=== PATIENT | male | born 2000 | race Two or more races ===

== ENCOUNTER 2019-10-04 12:51 | Inpatient (IN) | payer OTHER ==
[~2019-10-04] VITALS: Ht 182.9 cm; Wt 61.5 kg
[2019-10-04] MEDS ORDERED: IPRATROPIUM 0.5MG/ALBUTEROL 2.5MG INH SOL UD 3ML (DUONEB)(J7620) NEB SCH (14:00)
[2019-10-04 15:16] VITALS: BP 147/86
[2019-10-04] MEDS ORDERED: QUEtiapine FUMARATE 12.5 MG HALF-TAB PEG PRN (17:00)
[2019-10-04] MEDS ORDERED: oxyCODONE 5MG TAB PEG PRN ×2 (17:00→18:15)
[2019-10-04] MEDS ORDERED: oxyCODONE 5MG TAB PO ONE (17:00)
--- NOTE | 2019-10-04 17:43 | REP ---
Clinical: Dyspnea. Rule out infiltrate/pneumonia . Comparison: None . Findings: The mediastinum and cardiac silhouette are stable and within normal limits for portable technique. The lung ferguson are clear without acute consolidation, effusion, or pneumothorax. Skeletal structures are intact. Kee rods noted through the visualized lower thoracic and upper lumbar spine. Impression: No acute cardiopulmonary process appreciated. Electronically Signed by Matt Patel MD 10/04/2019 05:35 P
--- NOTE | 2019-10-04 18:50 | HPEPDOC ---
Paper Cleaner Note DATE OF ADMISSION: 10/04/19 DATE OF SERVICE: 10/04/19 TIME OF ADMISSION: Please refer to physician's admission order. SOURCE OF ADMISSION INFORMATION: [facility] records and patient CHIEF COMPLAINT: TBI and SCI HISTORY OF PRESENT ILLNESS: 19M no pmh presented to [facility] on 09-24-19 after sustaining a fall from a tree while working found to have bilateral ankle fractures, non-displaced nasal bone fracture/oblique left upper posterior molar fracture, and a left sided temporal lobe contusion with scattered subarachnoid hemorrhages. He also was found to have a T12 burst fracture with noted bilateral lower extremity paralysis. MRI of his spine confirmed spinal cord compression. He was intubate d, admitted to the ICU, started on seizure prophylaxis with Keppra, and evaluated by neurosurgery who performed a laminectomy and fusion performed 09/25/19. He underwent bilateral ankle ORIF on 09-27-19, was started on DVT prophylaxis and made NWB for 6-8 weeks. Plastic and ENT did not deem his facial fractures to operable. He was unable to pass a swallow eval and underwent PEG placement on 09-30-19, however was cleared for dysphagia diet prior to discharge. He was deemed to be medically appropriate for discharge to ARU. On initial presentation patient was delirious reporting visual hallucinations with ongoing productive cough. He reports having pain everywhere. He is able to follow some commands. REVIEW OF SYSTEMS: The following is a completed review of systems and has been reviewed. Review of systems otherwise unremarkable. PAIN: Patient self reports pain everywhere EYES: No recent vision changes EARS, NOSE, & THROAT: + throat pain, +dysphagia CARDIOVASCULAR: Denies chest pain or palpitations PULMONARY: Denies shortness of breath, +cough GASTROINTESTINAL: Denies constipation/diarrhea GENITOURINARY: denies dysuria MUSCULOSKELETAL: bilat LE weakness with bilat ankle fractures NEUROLOGICAL:+paraplegia HEMATOLOGICAL: denies easy bruising SKIN: scattered tattoos, bilat medial/lateral ankle incisions, thoracic incision PSYCHIATRIC: +delirious with visual hallucinations All other review of systems found to be negative. PAST MEDICAL HISTORY: none PAST SURGICAL HISTORY: as per HPI ALLERGIES: Please see below. MEDICATIONS: Please see below. SOCIAL HISTORY:+smoker per [facility] report DIET: NPO PHYSICAL EXAMINATION: VITAL SIGNS: Please see below. GENERAL: Pleasant and cooperative. No acute distress. HEENT: PERRL. Extraocular movements intact. Clear conjunctiva, CARDIOVASCULAR: Regular rate and rhythm. No murmurs, rubs, or gallops LUNGS: Clear to auscultation bilaterally. No wheezes. No rhonchi, +transmitted upper airway sounds, constant throat clearing/cough ABDOMEN: Soft, nontender, nondistended. Positive bowel sounds. Normal active bowel sounds, +PEG NEUROLOGICAL: Alert and oriented to self, year, not place, actively having visual hallucinations, but able to follow most commands -Cranial nerves II through XII grossly intact. Sensation grossly intact to light touch and pinprick in bilat LE and sacral region (exam limited due to delirium, will perform PENELOPE SCI exam at later date) (1+ patella reflex bilat, negative Babinski bilat) EXTREMITIES: 5\5 strength bilateral upper extremities. right hip flexor/knee extensor and hip abduction 2/5 (ankle DF/EHL limited due to surgery, able to wiggle toes) left hip flexor/knee extensor and hip abduction 2+/5 (ankle DF/EHL limited due to surgery, able to wiggle toes) SKIN: bilat ankle incisions c/d/i, thoracic incision c/d/i, blanchable erythema bilat heels, no sacral erythema LABORATORY DATA: Please see below. IMAGING:Imaging documentation personally reviewed by record Left ankle 09/24/19 fractures of the left distal tibia and fibuladistal tibial fracture is intra- articular Right ankle XR 09/24/19 comminuted intra-articular fracture of the distal tibia. Transverse facture of the right distal tibia FUNCTIONAL STATUS: Premorbid: Independent with all activities of daily life as well as mobility On Admission: Maximum-Total assistance for bed mobility, ambulation, toileting, dressing, feeding GOALS: Mod-I from wheelchair level for mobility, functional transfers, toileting, bathing, dressing ASSESSMENT:19-year-old M with no significant PMH who presents status post fall from tree with TBI, SCI, and bilat ankle fractures PLAN: 1. Rehab- PT/OT advance mobility- strengthen/stretch/maintain ROM all 4limbs while keeping spinal precautions and NWB bilat LE- multipodus boots to be worn in bed [employer]- NPO for now given encephalopathy- c/u tube feeds, [employer] to trial feeds over the weekend and advance if cleared -cog for TBI 2. 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 Cardiac: no known hx-monitor for autonomic dysreflexia-optimize pain control, monitor for urinary/fecal retention -propranolol for agitation/storming 4. Resp: patient presenting with cough, CXR ordered and negative for infiltrate -will start duonebs, guaifenesin, and budesonide to help reduce upper airway inflammation as patient with constant throat clearing 5. GI: c/u bowel meds for neurogenic bowel with daily suppository and digital stimulation to trigger recto-colonic reflex -PPI for ppx 6. : neurogenic bladder, monitor PVRs and bladder scan q6h- see bladder scan order 7. DVT ppx: lovenox, will order admission Dopplers 8. Ortho: s/p bilat ankle ORIF, NWB f/u ortho 6-8 weeks 9. Pain: patient was on dilaudid, will trial oxycodone while here and gabapentin, tylenol TID 10. Dispo: TBD POST ADMISSION PHYSICIAN EVALUATION: Medical and functional status: Description of medical status, medical assessment: As above. Rehabilitation diagnosis and current and prior cold morbid medical conditions as above. Risk of complications and plans to mitigate them as above. Description of functional status current status is as above. Prior status as above. Status compared to preadmission: There are no clinically significant differences between the patient's current status and the information described on the preadmission screening document. Treatment plan anticipated: Treatment plan is as described above. Required disciplines including physical therapy, occupational therapy, others as noted above Intensity of services: 3 hours a day, 6 days a week. Special considerations: There are no specific special or safety considerations that would likely preclude immediate implementation of an intensive rehabilitation program or subsequently influence the plan of care. ATTESTATION: Considering all the information above, it is my best judgment that this patient requires intensive rehabilitation therapy as described above and an inpatient hospital environment due to the complexity of nursing, medical, and rehabilitation needs required by the patient. Furthermore, this patient can reasonably be expected to participate in an benefit from an inpatient rehabilitation stay with an interdisciplinary team approach to the delivery of rehabilitation care under the direction and supervision of rehabilitation physician. PROGNOSIS: good ESTIMATED LENGTH OF STAY:21-24 days. PROJECTED DISCHARGE DESTINATION: Home with family support and any durable me dical equipment required to increase functional safety and mobility. TIME SPENT COUNSELING AND COORDINATING INITIAL CARE: Greater than 70 minutes. Vital Signs Vital Sign - Last 24 Hours 10/04/19 15:16 Temp 97.5 Pulse 100 Resp 18 B/P (MAP) 147/86 (106) Pulse Ox 100 Laboratory Data Labs 24H Laboratory Tests 2 10/04/19 16:45: Allergies Coded Allergies: No Known Allergies (Unverified , 10/04/19) A-FIB/CHADSVASC A-FIB History Current/History of A-Fib/PAF?: No ARTUR MERRITT MD October 04, 2019 18:50
[2019-10-04] MEDS ORDERED: BISACODYL 10 MG SUPP PR SCH (19:00)
[2019-10-04 20:00] VITALS: BP 144/76
[2019-10-04] MEDS: BUDESONIDE 180MCG INHALER (PULMICORT FLEXHALER) INH SCH (20:00)
[2019-10-04] MEDS: IPRATROPIUM 0.5MG/ALBUTEROL 2.5MG INH SOL UD 3ML (DUONEB)(J7620) NEB SCH (20:00)
[2019-10-04] MEDS ORDERED: GABAPENTIN 100 MG CAP PEG SCH (21:00)
[2019-10-04] MEDS ORDERED: guaiFENesin SYRUP 200 MG/10 ML UDC PEG SCH (21:00)
[2019-10-04] MEDS: CHLORHEXIDINE GLUCONATE 0.12 % 15ML UDC (PERIDEX ORAL RINSE) XX SCH (21:13)
[2019-10-04] MEDS: QUEtiapine FUMARATE 12.5 MG HALF-TAB PEG SCH (21:14)
[2019-10-04] MEDS: PROPRANOLOL 10 MG TAB PEG SCH ×2 (21:14→23:41)
[2019-10-04] MEDS: oxyCODONE 5MG TAB PEG SCH (21:15)
[2019-10-04] MEDS: FLUTICASONE PROP 0.05% NASAL SPRAY 16 GM (FLONASE) NARES SCH (21:16)
[2019-10-04] MEDS: GABAPENTIN 100 MG CAP PEG SCH (21:16)
[2019-10-04] MEDS: ACETAMINOPHEN 325 MG/10.15 ML UDC TF SCH (21:16)
[2019-10-04] MEDS: SODIUM CHLORIDE NASAL 0.65% SPRAY BTL (OCEAN) SCH (21:16)
[2019-10-04] MEDS: DOCUSATE SOD LIQ 100MG/10ML UDC GT SCH (21:16)
[2019-10-05] MEDS: IPRATROPIUM 0.5MG/ALBUTEROL 2.5MG INH SOL UD 3ML (DUONEB)(J7620) NEB SCH ×5 (02:10→19:55)
[2019-10-05 06:00] VITALS: BP 135/75
[2019-10-05] MEDS: PROPRANOLOL 10 MG TAB PEG SCH ×4 (06:10→21:39)
[2019-10-05 06:51] LABS: BASO # 0.1 10^3/uL (0.0-0.2); BASO % 0.6 % (0.0-1.0); EOS # 0.4 10^3/uL (0.0-0.5); EOS % 2.4 % (0.0-3.0); HEMATOCRIT 34.4 % (42.0-52.0); HEMOGLOBIN 11.7 g/dl (13.5-17.5); LYMPH # 1.7 10^3/uL (1.5-5.0); LYMPH % 10.2 % (24.0-44.0); MEAN CORPUSCULAR HEMOGLOBIN 32.2 pg (27.0-33.0); MEAN CORPUSCULAR VOLUME 94.8 fl (80.0-96.0); MONO # 1.4 10^3/uL (0.0-0.8); MONO % 8.3 % (0.0-5.0); NEUTROPHILS # 12.2 10^3/uL (1.5-8.5); NEUTROPHILS % 73.7 % (36.0-66.0); PLATELET COUNT, AUTOMATED 405 10^3/uL (150-450); RED BLOOD COUNT 3.63 10^6/uL (4.30-6.10); WHITE BLOOD COUNT 16.5 10^3/uL (4.0-10.0)
[2019-10-05 07:13] LABS: ALBUMIN 3.1 GM/DL (3.2-5.2); ALT/SGPT 65 U/L (12-78); BILIRUBIN,TOTAL 1.4 MG/DL (0.2-1.0); BLOOD UREA NITROGEN 20 MG/DL (7-18); CALCIUM LEVEL 8.8 MG/DL (8.5-10.1); CARBON DIOXIDE LEVEL 27 MEQ/L (21-32); CHLORIDE LEVEL 99 MEQ/L (98-107); CREATININE FOR GFR 0.67 MG/DL (0.70-1.30); GLOMERULAR FILTRATION RATE > 60.0 (>60); GLUCOSE, FASTING 108 MG/DL (70-100); POTASSIUM SERUM 4.7 MEQ/L (3.5-5.1); SODIUM LEVEL 135 MEQ/L (136-145); TOTAL PROTEIN 7.1 GM/DL (6.4-8.2)
[2019-10-05] MEDS: BUDESONIDE 180MCG INHALER (PULMICORT FLEXHALER) INH SCH ×2 (07:41→19:55)
[2019-10-05] MEDS: DOCUSATE SOD LIQ 100MG/10ML UDC GT SCH ×3 (08:29→21:37)
[2019-10-05] MEDS: oxyCODONE 5MG TAB PEG SCH ×4 (08:29→21:40)
[2019-10-05] MEDS: LANSOPRAZOLE SUSPENSION 30 MG/10 ML ORAL SYRINGE (FIRST-LANSOPRAZOLE) PEG SCH (08:30)
[2019-10-05] MEDS: ACETAMINOPHEN 325 MG/10.15 ML UDC TF SCH ×3 (08:30→21:37)
[2019-10-05] MEDS: GABAPENTIN 100 MG CAP PEG SCH ×3 (08:30→21:37)
[2019-10-05] MEDS: CHLORHEXIDINE GLUCONATE 0.12 % 15ML UDC (PERIDEX ORAL RINSE) XX SCH ×4 (08:30→21:37)
[2019-10-05] MEDS: QUEtiapine FUMARATE 12.5 MG HALF-TAB PEG SCH ×2 (08:30→21:38)
[2019-10-05] MEDS: guaiFENesin 200 MG TAB PEG SCH ×3 (08:30→21:38)
[2019-10-05] MEDS: SODIUM CHLORIDE NASAL 0.65% SPRAY BTL (OCEAN) SCH ×3 (08:31→21:40)
[2019-10-05] MEDS: ENOXAPARIN 40MG/0.4ML SYRINGE (J1650 PER 10MG) SC SCH (08:31)
[2019-10-05] MEDS: FLUTICASONE PROP 0.05% NASAL SPRAY 16 GM (FLONASE) NARES SCH ×2 (08:31→21:40)
[2019-10-05] MEDS: SENNA 8.6 MG TAB (SENOKOT) PEG SCH (12:42)
[2019-10-05] MEDS ORDERED: ALBUTEROL 90 MCG/ACT 8GM HFA INHALER INH PRN (13:15)
[2019-10-05] MEDS ORDERED: ISOVUE-370 76% 100ML VIAL As Ordered ONE (13:31)
--- NOTE | 2019-10-05 13:52 | IPNPDOC ---
Text Note Date of Service The patient was seen on 10/05/19. NOTE Subjective: Patient continues to have confusion and visual hallucinations. Mark estevez developed wet intensive cough since yesterday and shortness of breath VITAL SIGNS: Please see below. GENERAL: awake, alert, NAD HEENT: NCAT, anicteric sclera, JALEN NECK: supple, no JVD CARDIOVASCULAR EXAMINATION: NS1S2, tachycardic at rate 105 RESPIRATORY EXAMINATION: Coarse lung sounds bilaterally ABDOMINAL EXAMINATION: positive bowel sounds x 4, NT EXTREMITIES: ankles and feet immobilized in casts, pulsation preserved SKIN: warm, no rashes. NEUROLOGICAL EXAMINATION: Not oriented in place, has some visual hallucinations, but able to answer questions, follows simple commands, incomplete paraplegia Assessment and plan Patient is 19 years old male who was transferred to ARU physical rehabilitation after prolonged hospitalization due to multiple traumas after falling from a tree. Patient developed bilateral tibial trauma, left-sided temporal contusion with subarachnoid hemorrhage , facial trauma, spinal injury at T11-T12 with edema requiring intubation. Patient had laminectomy. Subsequently patient was extubated. Due to continues delirium and somnolence PEG was placed on 10/02/19. Sepsis Patient has tachycardia and dyspnea with leukocytosis Most likely patient developed pneumonia secondary to aspiration. Also patient was recently in the ICU on ventilatory support I will start combination Zosyn and levofloxacin Sputum culture, blood culture IV fluid CTA to rule out PE. Incentive spirometry Aspiration precaution Pneumonia HCAP vs ventilatory associated pneumonia vs aspiration pneumonia See above Altered mental status/metabolic encephalopathy Unclear etiology. Most likely multifactorial after traumatic brain injury superimposed with sepsis and pain medications VS,Fishbone, I+O VS, Fishbone, I+O Laboratory Tests 10/05/19 06:19 Vital Signs Date Time Temp Pulse Resp B/P (MAP) Pulse Ox O2 Delivery O2 Flow Rate FiO2 10/05/19 12:42 22 93 Room Air 10/05/19 12:41 121 119/76 10/05/19 06:00 98.5 I&O- Last 24 Hours up to 6 AM 10/05/19 06:00 Intake Total 0 ml Output Total 475 ml Balance -475 ml SUSANNA LOZOYA DO October 05, 2019 13:52
[2019-10-05 14:00] VITALS: BP 139/92
[2019-10-05] MEDS ORDERED: NS 1,000 ML IV ONE (14:00)
--- NOTE | 2019-10-05 14:15 | REP ---
Clinical: Acute chest pain. Technique: Axial contrast enhanced images from the thoracic inlet to the upper abdomen using 75 ml Isovue 370 intravenous contrast material with coronal and sagittal re-formations. Findings: Satisfactory enhancement of the pulmonary vasculature is achieved and no filling defects are identified to suggest pulmonary embolus. Thoracic aorta is normal caliber without aneurysm or dissection. Heart and pericardium are normal. Subtle acute scattered alveolar and interstitial infiltrates are identified bilaterally (left greater than right) and most compatible with an early acute multifocal pneumonia. No discrete large consolidation. No effusion. No pneumothorax. Inspissated material and elements of mucus plugging are identified involving the left lower lobe bronchi. Skeletal structures demonstrate evidence for recent compression fracture at T12 with associated Kee rods in satisfactory position. Impression: No evidence for pulmonary embolus. Acute multifocal pneumonia. Electronically Signed by Matt Patel MD 10/05/2019 02:06 P
[2019-10-05] MEDS: NS 1,000 ML IV SCH (15:07)
[2019-10-05] MEDS: PIPERACILLIN/TAZOBACTAM SOD 4.5 GM in D5W MINI-BAG PLUS 100 ML IV SCH ×2 (15:58→21:35)
[2019-10-05] MEDS: BISACODYL 10 MG SUPP PR SCH (16:09)
[2019-10-05] MEDS: LevoFLOXacin IV 750 MG in IV 1 EA IV SCH (17:03)
[2019-10-05 20:30] VITALS: BP 141/77
[2019-10-06] MEDS: PIPERACILLIN/TAZOBACTAM SOD 4.5 GM in D5W MINI-BAG PLUS 100 ML IV SCH ×4 (01:42→21:16)
[2019-10-06] MEDS: oxyCODONE 5MG TAB PEG SCH ×6 (01:43→22:10)
[2019-10-06] MEDS: NS 1,000 ML IV SCH ×2 (03:45→12:11)
[2019-10-06 05:12] VITALS: BP 155/85
[2019-10-06 07:05] LABS: BASO % 0.3 % (0.0-1.0); EOS # 0.3 10^3/uL (0.0-0.5); EOS % 2.2 % (0.0-3.0); HEMATOCRIT 29.3 % (42.0-52.0); HEMOGLOBIN 9.8 g/dl (13.5-17.5); LYMPH # 1.4 10^3/uL (1.5-5.0); LYMPH % 9.4 % (24.0-44.0); MEAN CORPUSCULAR HEMOGLOBIN 32.5 pg (27.0-33.0); MEAN CORPUSCULAR HGB CONC 33.4 g/dl (32.0-36.5); MONO # 1.2 10^3/uL (0.0-0.8); NEUTROPHILS # 11.5 10^3/uL (1.5-8.5); PLATELET COUNT, AUTOMATED 310 10^3/uL (150-450); RED BLOOD COUNT 3.02 10^6/uL (4.30-6.10); WHITE BLOOD COUNT 14.9 10^3/uL (4.0-10.0)
[2019-10-06] MEDS: BUDESONIDE 180MCG INHALER (PULMICORT FLEXHALER) INH SCH ×2 (07:12→19:41)
[2019-10-06] MEDS: IPRATROPIUM 0.5MG/ALBUTEROL 2.5MG INH SOL UD 3ML (DUONEB)(J7620) NEB SCH ×4 (07:12→19:41)
[2019-10-06 07:44] LABS: BLOOD UREA NITROGEN 17 MG/DL (7-18); CALCIUM LEVEL 7.9 MG/DL (8.5-10.1); CARBON DIOXIDE LEVEL 29 MEQ/L (21-32); CHLORIDE LEVEL 103 MEQ/L (98-107); CREATININE FOR GFR 0.67 MG/DL (0.70-1.30); GLOMERULAR FILTRATION RATE > 60.0 (>60); GLUCOSE, FASTING 119 MG/DL (70-100); MAGNESIUM LEVEL 1.8 MG/DL (1.8-2.4); POTASSIUM SERUM 4.1 MEQ/L (3.5-5.1); SODIUM LEVEL 138 MEQ/L (136-145)
[2019-10-06] MEDS: GABAPENTIN 100 MG CAP PEG SCH ×3 (08:13→22:11)
[2019-10-06] MEDS: guaiFENesin 200 MG TAB PEG SCH ×3 (08:13→22:12)
[2019-10-06] MEDS: ENOXAPARIN 40MG/0.4ML SYRINGE (J1650 PER 10MG) SC SCH (08:14)
[2019-10-06] MEDS: PROPRANOLOL 10 MG TAB PEG SCH ×3 (08:14→22:11)
[2019-10-06] MEDS: LANSOPRAZOLE SUSPENSION 30 MG/10 ML ORAL SYRINGE (FIRST-LANSOPRAZOLE) PEG SCH (08:14)
[2019-10-06] MEDS: DOCUSATE SOD LIQ 100MG/10ML UDC GT SCH ×3 (08:15→22:12)
[2019-10-06] MEDS: FLUTICASONE PROP 0.05% NASAL SPRAY 16 GM (FLONASE) NARES SCH ×2 (08:15→21:17)
[2019-10-06] MEDS: ACETAMINOPHEN 325 MG/10.15 ML UDC TF SCH ×3 (08:15→22:09)
[2019-10-06] MEDS: CHLORHEXIDINE GLUCONATE 0.12 % 15ML UDC (PERIDEX ORAL RINSE) XX SCH ×4 (08:15→22:09)
[2019-10-06] MEDS: QUEtiapine FUMARATE 12.5 MG HALF-TAB PEG SCH ×2 (08:16→22:12)
[2019-10-06] MEDS: SODIUM CHLORIDE NASAL 0.65% SPRAY BTL (OCEAN) SCH ×3 (08:16→21:17)
--- NOTE | 2019-10-06 11:57 | IPNPDOC ---
Text Note Date of Service The patient was seen on 10/06/19. NOTE Subjective: No any acute events overnight. Patient is more alert, awake in the morning. He was able to answer my questions. VITAL SIGNS: Please see below. GENERAL: awake, alert, NAD HEENT: NCAT, anicteric sclera, JALEN NECK: supple, no JVD CARDIOVASCULAR EXAMINATION: NS1S2, tachycardic at rate 105 RESPIRATORY EXAMINATION: Coarse lung sounds bilaterally ABDOMINAL EXAMINATION: positive bowel sounds x 4, NT EXTREMITIES: ankles and feet immobilized in casts, pulsation preserved SKIN: warm, no rashes. NEUROLOGICAL EXAMINATION: Not oriented in place, has some visual hallucinations, but able to answer questions, follows simple commands, incomplete paraplegia Assessment and plan Patient is 19 years old male who was transferred to ARU physical rehabilitation after prolonged hospitalization due to multiple traumas after falling from a tree. Patient developed bilateral tibial trauma, left-sided temporal contusion with subarachnoid hemorrhage , facial trauma, spinal injury at T11-T12 with edema requiring intubation. Patient had laminectomy. Subsequently patient was extubated. Due to continues delirium and somnolence PEG was placed on 10/02/19. Sepsis Patient has tachycardia and dyspnea with leukocytosis on 10/05/19 Most likely patient developed pneumonia secondary to aspiration. Also patient was recently in the ICU on ventilatory support I started combination Zosyn and levofloxacin on 10/05/19 Sputum culture positive for Klebsiella Oxytoca Continue IV fluid CTA showed multifocal pneumonia, negative for PE Incentive spirometry Aspiration precaution Pneumonia HCAP vs ventilatory associated pneumonia vs aspiration pneumonia See above Altered mental status/metabolic encephalopathy Resolved Unclear etiology. Most likely multifactorial after traumatic brain injury superimposed with sepsis and pain medications VS,Andrebone, I+O VS, Fishbone, I+O Laboratory Tests 10/06/19 06:46 Vital Signs Date Time Temp Pulse Resp B/P (MAP) Pulse Ox O2 Delivery O2 Flow Rate FiO2 10/06/19 08:43 19 10/06/19 08:14 107 155/85 10/06/19 05:12 99.1 99 Room Air I&O- Last 24 Hours up to 6 AM 10/06/19 06:00 Intake Total 4560 ml Output Total 1275 ml Balance 3285 ml SUSANNA LOZOYA DO October 06, 2019 11:57
[2019-10-06] MEDS: SENNA 8.6 MG TAB (SENOKOT) PEG SCH (12:10)
[2019-10-06 14:00] VITALS: BP 137/57
[2019-10-06] MEDS: LevoFLOXacin IV 750 MG in IV 1 EA IV SCH (16:12)
[2019-10-06] MEDS: BISACODYL 10 MG SUPP PR SCH (16:39)
[2019-10-06 21:00] VITALS: BP 136/78
[2019-10-07] MEDS: IPRATROPIUM 0.5MG/ALBUTEROL 2.5MG INH SOL UD 3ML (DUONEB)(J7620) NEB SCH ×4 (00:12→19:23)
[2019-10-07] MEDS: NS 1,000 ML IV SCH ×3 (00:20→11:13)
[2019-10-07] MEDS: PIPERACILLIN/TAZOBACTAM SOD 4.5 GM in D5W MINI-BAG PLUS 100 ML IV SCH ×2 (01:15→07:39)
[2019-10-07] MEDS: oxyCODONE 5MG TAB PEG SCH ×7 (02:00→20:36)
[2019-10-07 06:00] VITALS: BP 130/64
[2019-10-07 06:53] LABS: BASO # 0.1 10^3/uL (0.0-0.2); BASO % 0.6 % (0.0-1.0); EOS # 0.3 10^3/uL (0.0-0.5); EOS % 2.7 % (0.0-3.0); HEMATOCRIT 28.4 % (42.0-52.0); HEMOGLOBIN 9.9 g/dl (13.5-17.5); LYMPH # 1.6 10^3/uL (1.5-5.0); LYMPH % 14.3 % (24.0-44.0); MEAN CORPUSCULAR HEMOGLOBIN 33.7 pg (27.0-33.0); MEAN CORPUSCULAR HGB CONC 34.9 g/dl (32.0-36.5); MEAN CORPUSCULAR VOLUME 96.6 fl (80.0-96.0); MONO % 9.2 % (0.0-5.0); NEUTROPHILS # 7.6 10^3/uL (1.5-8.5); NEUTROPHILS % 69.3 % (36.0-66.0); PLATELET COUNT, AUTOMATED 295 10^3/uL (150-450); RED BLOOD COUNT 2.94 10^6/uL (4.30-6.10); WHITE BLOOD COUNT 10.9 10^3/uL (4.0-10.0)
[2019-10-07 07:07] LABS: BLOOD UREA NITROGEN 15 MG/DL (7-18); CALCIUM LEVEL 8.2 MG/DL (8.5-10.1); CARBON DIOXIDE LEVEL 30 MEQ/L (21-32); CHLORIDE LEVEL 97 MEQ/L (98-107); CREATININE FOR GFR 0.64 MG/DL (0.70-1.30); GLOMERULAR FILTRATION RATE > 60.0 (>60); GLUCOSE, FASTING 95 MG/DL (70-100); MAGNESIUM LEVEL 2.1 MG/DL (1.8-2.4); POTASSIUM SERUM 4.2 MEQ/L (3.5-5.1); SODIUM LEVEL 134 MEQ/L (136-145)
[2019-10-07] MEDS: BUDESONIDE 180MCG INHALER (PULMICORT FLEXHALER) INH SCH ×2 (07:30→19:23)
[2019-10-07] MEDS: DOCUSATE SOD LIQ 100MG/10ML UDC GT SCH ×4 (07:44→20:42)
[2019-10-07] MEDS: ACETAMINOPHEN 325 MG/10.15 ML UDC TF SCH ×3 (07:44→20:42)
[2019-10-07] MEDS: LANSOPRAZOLE SUSPENSION 30 MG/10 ML ORAL SYRINGE (FIRST-LANSOPRAZOLE) PEG SCH (07:45)
[2019-10-07] MEDS: guaiFENesin 200 MG TAB PEG SCH ×3 (07:46→20:36)
[2019-10-07] MEDS: PROPRANOLOL 10 MG TAB PEG SCH ×3 (07:46→20:36)
[2019-10-07] MEDS: SODIUM CHLORIDE NASAL 0.65% SPRAY BTL (OCEAN) SCH ×3 (07:47→20:41)
[2019-10-07] MEDS: FLUTICASONE PROP 0.05% NASAL SPRAY 16 GM (FLONASE) NARES SCH ×2 (07:47→20:41)
[2019-10-07] MEDS: CHLORHEXIDINE GLUCONATE 0.12 % 15ML UDC (PERIDEX ORAL RINSE) XX SCH ×4 (07:47→20:41)
[2019-10-07] MEDS: ENOXAPARIN 40MG/0.4ML SYRINGE (J1650 PER 10MG) SC SCH (07:48)
[2019-10-07] MEDS: GABAPENTIN 100 MG CAP PEG SCH ×3 (07:53→20:35)
[2019-10-07] MEDS: QUEtiapine FUMARATE 12.5 MG HALF-TAB PEG SCH ×2 (07:54→20:36)
--- NOTE | 2019-10-07 11:01 | REP ---
DEEP VENOUS ULTRASONOGRAPHY BILATERAL THIGH, RULE OUT DVT: REASON: Pain and swelling, bilateral. Preliminary report given by [facility] at the time the examination was performed. TECHNIQUE: Multiple ultrasonographic images of the deep venous structures of the bilateral thigh were obtained from the common femoral vein to the popliteal vein along with Doppler interrogation and color flow Doppler images. FINDINGS: There is no abnormal echogenic material seen within any of the visualized deep venous structures that would suggest acute thrombosis. Coaptation is unremarkable throughout. Doppler interrogation shows an expected response to respiratory variability and augmentation. The color flow images show what appears to be a normal vascular pattern throughout. IMPRESSION: There is no ultrasonographic evidence of deep venous thrombosis involving any of the visualized deep venous structures of the bilateral thigh, as described above. Electronically Signed by Michael Muse DO 10/07/2019 11:54 A
[2019-10-07] MEDS: SENNA 8.6 MG TAB (SENOKOT) PEG SCH ×2 (12:20→20:35)
[2019-10-07 14:00] VITALS: BP 128/72
[2019-10-07] MEDS: BISACODYL 10 MG SUPP PR SCH (14:45)
[2019-10-07] MEDS: LevoFLOXacin IV 750 MG in IV 1 EA IV SCH (15:54)
[2019-10-07] MEDS: REMEDY PHYTOPLEX Z-GUARD PASTE 113GM TUBE (FROM STOREROOM PRODUCT) TOP SCH ×2 (16:00→20:41)
--- NOTE | 2019-10-07 16:42 | IPNPDOC ---
PM&R Progress Note DATE OF SERVICE: October 07, 2019 [employer] Progress Note Subjective: PAtient reporting he is not having bad pain, he was able to tolerate one can of bolus today, and states he had a large bowel movement in the morning. He says his cough is much better. REVIEW OF SYSTEMS: The following is a completed review of systems and has been reviewed. Review of systems otherwise unremarkable. PAIN: Patient self reports pain everywhere EYES: No recent vision changes EARS, NOSE, & THROAT: +dysphagia CARDIOVASCULAR: Denies chest pain or palpitations PULMONARY: Denies shortness of breath, +cough (improving) GASTROINTESTINAL: Denies constipation/diarrhea GENITOURINARY: denies dysuria MUSCULOSKELETAL: bilat LE weakness with bilat ankle fractures NEUROLOGICAL:+paraplegia HEMATOLOGICAL: denies easy bruising SKIN: scattered tattoos, bilat medial/lateral ankle incisions, thoracic incision PSYCHIATRIC: +delirious with visual hallucinations (improving) All other review of systems found to be negative. PHYSICAL EXAMINATION: VITAL SIGNS: Please see below. GENERAL: Pleasant and cooperative. No acute distress. HEENT: PERRL. Extraocular movements intact. Clear conjunctiva, CARDIOVASCULAR: Regular rate and rhythm. No murmurs, rubs, or gallops LUNGS: Clear to auscultation bilaterally. No wheezes. No rhonchi, +transmitted upper airway sounds, constant throat clearing/cough ABDOMEN: Soft, nontender, nondistended. Positive bowel sounds. Normal active bowel sounds, +PEG NEUROLOGICAL: Alert and oriented x3 -Cranial nerves II through XII grossly intact. Sensation grossly intact to light touch and pinprick in bilat LE and sacral region (1+ patella reflex bilat, negative Babinski bilat) EXTREMITIES: 5\5 strength bilateral upper extremities. right hip flexor/knee extensor and hip abduction 2/5 (ankle DF/EHL limited due to surgery, able to wiggle toes) left hip flexor/knee extensor and hip abduction 2+/5 (ankle DF/EHL limited due to surgery, able to wiggle toes) SKIN: bilat ankle incisions c/d/i, thoracic incision c/d/i, blanchable erythema bilat heels, no sacral erythema ASSESSMENT:19-year-old M with no significant PMH who presents status post fall from tree with TBI, SCI, and bilat ankle fractures PLAN: 1. Rehab- PT/OT advance mobility- strengthen/stretch/maintain ROM all 4limbs w hile keeping spinal precautions and NWB bilat LE- multipodus boots to be worn in bed SH[employer]ER- NPO for now given encephalopathy- c/u tube feeds -cog for TBI 2. 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 Cardiac: no known hx-monitor for autonomic dysreflexia-optimize pain control, monitor for urinary/fecal retention -c/u propranolol for agitation/storming 4. Resp: patient started on IV Levaquin and Zosyn for sepsis in setting of VAP multifocal pneumonia, dx via CTA chest on 10-05-19, sputum growing Klebisella Oxytoca- medicine recs greatly appreciated -will start duonebs, guaifenesin, and budesonide to help reduce upper airway inflammation as patient with constant throat clearing 5. GI: c/u bowel meds for neurogenic bowel with daily suppository and digital stimulation to trigger recto-colonic reflex, patient had large BM today -PPI for ppx 6. : bryant placed over the weekend, while getting IVF in order to help prevent autonomic dysreflexia in setting of likely neurogenic bladder -will consider TOV mid-week 7. DVT ppx: lovenox, doppelrs negative for DVT 8. Ortho: s/p bilat ankle ORIF, NWB f/u ortho 6-8 weeks 9. Pain: c/u standing oxycodone, will lower from 10-->7.5mg, patient reporting his pain is well controlled -c/u gabapentin, tylenol TID 10. Dispo: TBD Allergies Coded Allergies: No Known Allergies (Unverified , 10/04/19) Vital Signs Vital Signs Date Time Temp Pulse Resp B/P (MAP) Pulse Ox O2 Delivery O2 Flow Rate FiO2 10/07/19 16:01 82 128/62 10/07/19 14:00 97.7 16 100 Room Air Laboratory Data CBC/BMP Laboratory Tests 10/07/19 06:19 Labs 24H Laboratory Tests 2 10/07/19 06:19: Immature Granulocyte % (Auto) 3.9H, Neutrophils (%) (Auto) 69.3H, Lymphocytes (%) (Auto) 14.3L, Monocytes (%) (Auto) 9.2H, Eosinophils (%) (Auto) 2.7, Basophils (%) (Auto) 0.6, Neutrophils # (Auto) 7.6, Lymphocytes # (Auto) 1.6, Monocytes # (Auto) 1.0H, Eosinophils # (Auto) 0.3, Basophils # (Auto) 0.1, Nucleated Red Blood Cells % (auto) 0.0, Anion Gap 7L, Glomerular Filtration Rate > 60.0, Calcium Level 8.2L, Magnesium Level 2.1 Microbiology Microbiology 10/06/19 Gram Stain - Final, Resulted 10/06/19 Sputum Culture, Resulted Pending 10/06/19 Blood Culture - Preliminary, Resulted No growth after 24 hours . All specim... 10/05/19 Blood Culture - Preliminary, Resulted No Growth after 48 hours. All Specime... 10/04/19 Gram Stain - Final, Complete 10/04/19 Sputum Culture - Final, Complete Klebsiella Oxytoca Current Medications Current Medications Current Medications Medications (Trade) Dose Ordered Sig/Talia Route PRN Reason Start Time Stop Time Status Last Admin Dose Admin Acetaminophen (Tylenol Suspension) 975 mg TID TF 10/04/19 21:00 10/07/19 16:01 Albuterol Sulfate (Proventil, Ventolin Hfa) 2 puff Q4H PRN INH WHEEZING 10/05/19 13:15 Albuterol/ Ipratropium (Duoneb (Ipr 0.5mg/Alb 2.5mg)) 3 ml RQID NEB 10/04/19 20:00 10/07/19 15:00 Albuterol/ Ipratropium (Duoneb (Ipr 0.5mg/Alb 2.5mg)) 3 ml RTID NEB 10/04/19 14:00 10/04/19 18:09 DC Bisacodyl (Dulcolax Suppository) 10 mg ASDIRECTED CA 10/04/19 19:00 10/05/19 14:11 DC Bisacodyl (Dulcolax Suppository) 10 mg DAILY CA 10/07/19 14:45 Bisacodyl (Dulcolax Suppository) 10 mg QPM@1700 CA 10/05/19 17:00 10/07/19 14:36 DC Budesonide (Pulmicort Flexhaler) 2 puff RBID INH 10/04/19 20:00 10/07/19 07:30 Chlorhexidine Gluconate (Peridex Oral Rinse) 15 ml QID XX 10/04/19 21:00 10/07/19 16:03 Docusate Sodium (Colace Liquid) 100 mg TID GT 10/04/19 21:00 10/07/19 14:36 DC 10/07/19 07:44 Docusate Sodium (Colace Liquid) 200 mg TID GT 10/07/19 16:00 10/07/19 16:01 Enoxaparin Sodium (Lovenox) 40 mg DAILY SC 10/05/19 09:00 10/07/19 07:48 Fluticasone Propionate (Flonase 0.05% Nasal [place]) 1 spray BID NARES 10/04/19 21:00 10/07/19 07:47 Gabapentin (Neurontin) 200 mg TID PEG 10/04/19 21:00 10/04/19 18:47 DC Gabapentin (Neurontin) 300 mg TID PEG 10/04/19 21:00 10/07/19 16:00 Guaifenesin (Robitussin Tab) 400 mg TID PEG 10/05/19 09:00 10/07/19 16:00 Guaifenesin (Robitussin) 10 ml TID PEG 10/04/19 21:00 10/05/19 02:48 DC 10/04/19 21:16 Home Med (Med Rec Complete!) ASDIRECTED XX 10/04/19 18:15 10/04/19 18:08 DC Lansoprazole (First-Lansoprazole Oral Suspension) 30 mg DAILY PEG 10/05/19 09:00 10/07/19 07:45 Levofloxacin 750 mg/IV Miscellaneous Supplies 150 ml @ 100 mls/hr Q24H IV 10/05/19 16:00 10/07/19 15:54 Oxycodone HCl (Roxicodone, Oxyir) 5 mg Q8HP PRN PEG PAIN 10/04/19 17:00 10/04/19 18:14 DC Oxycodone HCl (Roxicodone, Oxyir) 5 mg QID PEG 10/04/19 21:00 10/05/19 14:16 DC 10/05/19 12:42 Oxycodone HCl (Roxicodone, Oxyir) 7.5 mg Q8HP PRN PEG PAIN 10/04/19 18:15 10/05/19 14:15 DC Oxycodone HCl (Roxicodone, Oxyir) 10 mg Q4H PEG 10/05/19 17:00 10/07/19 12:20 Piperacillin Sod/ Tazobactam Sod 4.5 gm/Dextrose 50 ml @ 50 mls/hr Q6H IV 10/07/19 17:00 Piperacillin Sod/ Tazobactam Sod 4.5 gm/Dextrose 100 ml @ 100 mls/hr Q6H IV 10/05/19 14:00 10/07/19 14:03 DC 10/07/19 07:39 Propranolol HCl (Inderal) 10 mg Q6H PEG 10/04/19 18:00 10/05/19 14:52 DC 10/05/19 12:41 Propranolol HCl (Inderal) 20 mg TID PEG 10/05/19 16:00 10/07/19 16:01 Quetiapine Fumarate (SEROquel) 12.5 mg BID PEG 10/04/19 21:00 10/07/19 07:54 Quetiapine Fumarate (SEROquel) 12.5 mg Q8HP PRN PEG agitation 10/04/19 17:00 10/05/19 04:12 Senna (Senokot) 1 tab DAILY@1200 PEG 10/05/19 12:00 10/07/19 14:36 DC 10/07/19 12:20 Senna (Senokot) 2 tab QHS PEG 10/07/19 21:00 Sodium Chloride 1,000 ml @ 120 mls/hr Q8H20M IV 10/05/19 15:00 10/07/19 14:03 DC 10/07/19 11:13 Sodium Chloride ([place] Nasal [place]) 2 spray TID NA 10/04/19 21:00 5/18/20 07:47 ARTUR MERRITT MD October 07, 2019 16:42
[2019-10-07] MEDS ORDERED: PILL CUTTER 1 EACH XX PRN (16:45)
[2019-10-07] MEDS: PIPERACILLIN/TAZOBACTAM SOD 4.5 GM in D5W MINI-BAG PLUS 50 ML IV SCH ×2 (17:54→22:22)
[2019-10-07 18:34] VITALS: BP 136/77
[2019-10-07 19:57] VITALS: BP 131/60
[2019-10-08] MEDS: oxyCODONE 5MG TAB PEG SCH ×6 (00:58→20:58)
[2019-10-08] MEDS: PIPERACILLIN/TAZOBACTAM SOD 4.5 GM in D5W MINI-BAG PLUS 50 ML IV SCH ×4 (04:19→23:05)
[2019-10-08 06:00] VITALS: BP 132/73
[2019-10-08 07:01] LABS: BASO # 0.1 10^3/uL (0.0-0.2); BASO % 0.7 % (0.0-1.0); EOS # 0.2 10^3/uL (0.0-0.5); EOS % 2.8 % (0.0-3.0); HEMATOCRIT 31.6 % (42.0-52.0); HEMOGLOBIN 10.8 g/dl (13.5-17.5); LYMPH # 1.3 10^3/uL (1.5-5.0); LYMPH % 15.6 % (24.0-44.0); MEAN CORPUSCULAR HEMOGLOBIN 32.7 pg (27.0-33.0); MEAN CORPUSCULAR HGB CONC 34.2 g/dl (32.0-36.5); MEAN CORPUSCULAR VOLUME 95.8 fl (80.0-96.0); MONO # 0.8 10^3/uL (0.0-0.8); MONO % 9.4 % (0.0-5.0); NEUTROPHILS # 5.8 10^3/uL (1.5-8.5); NEUTROPHILS % 67.6 % (36.0-66.0); PLATELET COUNT, AUTOMATED 354 10^3/uL (150-450); WHITE BLOOD COUNT 8.5 10^3/uL (4.0-10.0)
[2019-10-08] MEDS: BUDESONIDE 180MCG INHALER (PULMICORT FLEXHALER) INH SCH ×2 (07:12→20:26)
[2019-10-08] MEDS: IPRATROPIUM 0.5MG/ALBUTEROL 2.5MG INH SOL UD 3ML (DUONEB)(J7620) NEB SCH ×4 (07:12→20:26)
[2019-10-08 07:22] LABS: BLOOD UREA NITROGEN 15 MG/DL (7-18); CALCIUM LEVEL 8.7 MG/DL (8.5-10.1); CARBON DIOXIDE LEVEL 30 MEQ/L (21-32); CHLORIDE LEVEL 96 MEQ/L (98-107); CREATININE FOR GFR 0.71 MG/DL (0.70-1.30); GLOMERULAR FILTRATION RATE > 60.0 (>60); GLUCOSE, FASTING 144 MG/DL (70-100); MAGNESIUM LEVEL 2.1 MG/DL (1.8-2.4); SODIUM LEVEL 132 MEQ/L (136-145)
[2019-10-08] MEDS: BISACODYL 10 MG SUPP PR SCH (09:00)
[2019-10-08] MEDS: REMEDY PHYTOPLEX Z-GUARD PASTE 113GM TUBE (FROM STOREROOM PRODUCT) TOP SCH ×3 (09:00→21:00)
[2019-10-08] MEDS: LANSOPRAZOLE SUSPENSION 30 MG/10 ML ORAL SYRINGE (FIRST-LANSOPRAZOLE) PEG SCH (09:44)
[2019-10-08] MEDS: ENOXAPARIN 40MG/0.4ML SYRINGE (J1650 PER 10MG) SC SCH (09:45)
[2019-10-08] MEDS: DOCUSATE SOD LIQ 100MG/10ML UDC GT SCH ×3 (09:45→20:58)
[2019-10-08] MEDS: ACETAMINOPHEN 325 MG/10.15 ML UDC TF SCH ×3 (09:46→20:55)
[2019-10-08] MEDS: PROPRANOLOL 10 MG TAB PEG SCH ×3 (09:47→20:56)
[2019-10-08] MEDS: FLUTICASONE PROP 0.05% NASAL SPRAY 16 GM (FLONASE) NARES SCH ×2 (09:47→21:06)
[2019-10-08] MEDS: QUEtiapine FUMARATE 12.5 MG HALF-TAB PEG SCH ×2 (09:47→20:56)
[2019-10-08] MEDS: guaiFENesin 200 MG TAB PEG SCH ×3 (09:47→20:56)
[2019-10-08] MEDS: GABAPENTIN 100 MG CAP PEG SCH ×3 (09:47→20:56)
[2019-10-08] MEDS: CHLORHEXIDINE GLUCONATE 0.12 % 15ML UDC (PERIDEX ORAL RINSE) XX SCH ×4 (09:48→20:59)
[2019-10-08] MEDS: SODIUM CHLORIDE NASAL 0.65% SPRAY BTL (OCEAN) SCH ×3 (09:48→21:05)
--- NOTE | 2019-10-08 11:09 | IPNPDOC ---
PM&R Progress Note DATE OF SERVICE: October 08, 2019 [employer] Progress Note Subjective: PAtient reporting he is feeling well today and that he wants to try urinating on his own. REVIEW OF SYSTEMS: The following is a completed review of systems and has been reviewed. Review of systems otherwise unremarkable. PAIN: Patient self reports pain everywhere EYES: No recent vision changes EARS, NOSE, & THROAT: +dysphagia CARDIOVASCULAR: Denies chest pain or palpitations PULMONARY: Denies shortness of breath, +cough (resolved) GASTROINTESTINAL: Denies constipation/diarrhea GENITOURINARY: denies dysuria MUSCULOSKELETAL: bilat LE weakness with bilat ankle fractures NEUROLOGICAL:+paraplegia HEMATOLOGICAL: denies easy bruising SKIN: scattered tattoos, bilat medial/lateral ankle incisions, thoracic incision PSYCHIATRIC: +delirious with visual hallucinations (improving) All other review of systems found to be negative. PHYSICAL EXAMINATION: VITAL SIGNS: Please see below. GENERAL: Pleasant and cooperative. No acute distress. HEENT: PERRL. Extraocular movements intact. Clear conjunctiva, CARDIOVASCULAR: Regular rate and rhythm. No murmurs, rubs, or gallops LUNGS: Clear to auscultation bilaterally. No wheezes. No rhonchi ABDOMEN: Soft, nontender, nondistended. Positive bowel sounds. Normal active bowel sounds, +PEG NEUROLOGICAL: Alert and oriented x3 -Cranial nerves II through XII grossly intact. Sensation grossly intact to light touch and pinprick in bilat LE and sacral region (1+ patella reflex bilat, negative Babinski bilat) EXTREMITIES: 5\5 strength bilateral upper extremities. 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 Cardiac: no known hx-monitor for autonomic dysreflexia-optimize pain control, monitor for urinary/fecal retention -c/u propranolol for agitation/storming 4. Resp: patient started on IV Levaquin and Zosyn for sepsis in setting of VAP multifocal pneumonia dx via CTA chest on 10-05-19, sputum growing Klebisella Oxytoca- medicine recs greatly appreciated, c/u IV at least 5 days total, leukocytosis resolved -will start duonebs, guaifenesin, and budesonide to help reduce upper airway inflammation as patient with constant throat clearing 5. GI: c/u bowel meds for neurogenic bowel with daily suppository and digital stimulation to trigger recto-colonic reflex 6. : bryant placed over the weekend, while getting IVF in order to help prevent autonomic dysreflexia in setting of likely neurogenic bladder -will start TOV today as patient with improved mobility and alertness 7. DVT ppx: lovenox, doppelrs negative for DVT 8. Ortho: s/p bilat ankle ORIF, NWB f/u ortho 6-8 weeks -will consult ortho inhouse to manage case going forward as his original care was performed in [place] 9. Pain: c/u standing oxycodone, lower from 10-->7.5mg (will c/u to lower) , patient reporting his pain is well controlled -c/u gabapentin, tylenol TID 10. Dispo: TBD Allergies Coded Allergies: No Known Allergies (Unverified , 10/04/19) Vital Signs Vital Signs Date Time Temp Pulse Resp B/P (MAP) Pulse Ox O2 Delivery O2 Flow Rate FiO2 10/08/19 10:11 18 Room Air 10/08/19 09:47 77 128/73 10/08/19 06:00 97.3 100 Laboratory Data CBC/BMP Laboratory Tests 10/08/19 06:31 Labs 24H Laboratory Tests 2 10/08/19 06:31: Immature Granulocyte % (Auto) 3.9H, Neutrophils (%) (Auto) 67.6H, Lymphocytes (%) (Auto) 15.6L, Monocytes (%) (Auto) 9.4H, Eosinophils (%) (Auto) 2.8, Basophils (%) (Auto) 0.7, Neutrophils # (Auto) 5.8, Lymphocytes # (Auto) 1.3L, M onocytes # (Auto) 0.8, Eosinophils # (Auto) 0.2, Basophils # (Auto) 0.1, Nucleated Red Blood Cells % (auto) 0.0, Anion Gap 6L, Glomerular Filtration Rate > 60.0, Calcium Level 8.7, Magnesium Level 2.1 Microbiology Microbiology 10/06/19 Gram Stain - Final, Resulted 10/06/19 Sputum Culture, Resulted Pending 10/06/19 Blood Culture - Preliminary, Resulted No Growth after 48 hours. All Specime... 10/05/19 Blood Culture - Preliminary, Resulted No Growth after 48 hours. All Specime... 10/04/19 Gram Stain - Final, Complete 10/04/19 Sputum Culture - Final, Complete Klebsiella Oxytoca Current Medications Current Medications Current Medications Medications (Trade) Dose Ordered Sig/Talia Route PRN Reason Start Time Stop Time Status Last Admin Dose Admin Acetaminophen (Tylenol Suspension) 975 mg TID TF 10/04/19 21:00 10/08/19 09:46 Albuterol Sulfate (Proventil, Ventolin Hfa) 2 puff Q4H PRN INH WHEEZING 10/05/19 13:15 Albuterol/ Ipratropium (Duoneb (Ipr 0.5mg/Alb 2.5mg)) 3 ml RQID NEB 10/04/19 20:00 10/08/19 07:12 Albuterol/ Ipratropium (Duoneb (Ipr 0.5mg/Alb 2.5mg)) 3 ml RTID NEB 10/04/19 14:00 10/04/19 18:09 DC Bisacodyl (Dulcolax Suppository) 10 mg ASDIRECTED UT 10/04/19 19:00 10/05/19 14:11 DC Bisacodyl (Dulcolax Suppository) 10 mg DAILY UT 10/07/19 14:45 Bisacodyl (Dulcolax Suppository) 10 mg QPM@1700 UT 10/05/19 17:00 10/07/19 14:36 DC Budesonide (Pulmicort Flexhaler) 2 puff RBID INH 10/04/19 20:00 10/08/19 07:12 Chlorhexidine Gluconate (Peridex Oral Rinse) 15 ml QID XX 10/04/19 21:00 10/08/19 09:48 Docusate Sodium (Colace Liquid) 100 mg TID GT 10/04/19 21:00 10/07/19 14:36 DC 10/07/19 07:44 Docusate Sodium (Colace Liquid) 200 mg TID GT 10/07/19 16:00 10/08/19 09:45 Enoxaparin Sodium (Lovenox) 40 mg DAILY SC 10/05/19 09:00 10/08/19 09:45 Fluticasone Propionate (Flonase 0.05% Nasal [place]) 1 spray BID NARES 10/04/19 21:00 10/08/19 09:47 Gabapentin (Neurontin) 200 mg TID PEG 10/04/19 21:00 10/04/19 18:47 DC Gabapentin (Neurontin) 300 mg TID PEG 10/04/19 21:00 10/08/19 09:47 Guaifenesin (Robitussin Tab) 400 mg TID PEG 10/05/19 09:00 10/08/19 09:47 Guaifenesin (Robitussin) 10 ml TID PEG 10/04/19 21:00 10/05/19 02:48 DC 10/04/19 21:16 Home Med (Med Rec Complete!) ASDIRECTED XX 10/04/19 18:15 10/04/19 18:08 DC Lansoprazole (First-Lansoprazole Oral Suspension) 30 mg DAILY PEG 10/05/19 09:00 10/08/19 09:44 Levofloxacin 750 mg/IV Miscellaneous Supplies 150 ml @ 100 mls/hr Q24H IV 10/05/19 16:00 10/07/19 15:54 Oxycodone HCl (Roxicodone, Oxyir) 5 mg Q8HP PRN PEG PAIN 10/04/19 17:00 10/04/19 18:14 DC Oxycodone HCl (Roxicodone, Oxyir) 5 mg QID PEG 10/04/19 21:00 10/05/19 14:16 DC 10/05/19 12:42 Oxycodone HCl (Roxicodone, Oxyir) 7.5 mg Q4H PEG 10/07/19 17:00 10/08/19 09:41 Oxycodone HCl (Roxicodone, Oxyir) 7.5 mg Q8HP PRN PEG PAIN 10/04/19 18:15 10/05/19 14:15 DC Oxycodone HCl (Roxicodone, Oxyir) 10 mg Q4H PEG 10/05/19 17:00 10/07/19 16:40 DC 10/07/19 12:20 Piperacillin Sod/ Tazobactam Sod 4.5 gm/Dextrose 50 ml @ 50 mls/hr Q6H IV 10/07/19 17:00 10/08/19 04:19 Piperacillin Sod/ Tazobactam Sod 4.5 gm/Dextrose 100 ml @ 100 mls/hr Q6H IV 10/05/19 14:00 10/07/19 14:03 DC 10/07/19 07:39 Propranolol HCl (Inderal) 10 mg Q6H PEG 10/04/19 18:00 10/05/19 14:52 DC 10/05/19 12:41 Propranolol HCl (Inderal) 20 mg TID PEG 10/05/19 16:00 10/08/19 09:47 Quetiapine Fumarate (SEROquel) 12.5 mg BID PEG 10/04/19 21:00 10/08/19 09:47 Quetiapine Fumarate (SEROquel) 12.5 mg Q8HP PRN PEG agitation 10/04/19 17:00 10/05/19 04:12 Senna (Senokot) 1 tab DAILY@1200 PEG 10/05/19 12:00 10/07/19 14:36 DC 10/07/19 12:20 Senna (Senokot) 2 tab QHS PEG 10/07/19 21:00 10/07/19 20:35 Sodium Chloride 1,000 ml @ 120 mls/hr Q8H20M IV 10/05/19 15:00 10/07/19 14:03 DC 10/07/19 11:13 Sodium Chloride ([place] Nasal [place]) 2 spray TID NA 10/04/19 21:00 10/08/19 09:48 ARTUR MERRITT MD October 08, 2019 11:09
[2019-10-08] MEDS ORDERED: BARIUM SULFATE 700 MG TABLET (E-Z-DISK) As Ordered ONE (13:52)
[2019-10-08] MEDS ORDERED: VARIBAR NECTAR 40% w/v 240ML SUSP BTL As Ordered ONE (13:52)
[2019-10-08] MEDS ORDERED: VARIBAR PUDDING 40% w/v 230ML TUBE As Ordered ONE (13:52)
[2019-10-08] MEDS ORDERED: E-Z-PAQUE 96% w/w SUSP 176GM BTL As Ordered ONE (13:52)
[2019-10-08] MEDS: LevoFLOXacin IV 750 MG in IV 1 EA IV SCH (15:47)
[2019-10-08 16:00] VITALS: BP 117/70
--- NOTE | 2019-10-08 16:58 | REP ---
COOKIE SWALLOW The procedure was performed under the direct supervision of Dr. Wise. The procedure was performed with Yamileth Jackson from speech pathology present. 5 ml aliquots of nectar, honey and formed puree consistency barium was administered. With nectar consistency barium there is aspiration with cough response. A detailed report of this examination will be provided by speech pathology. 0.4 minutes of fluoroscopy time was utilized for this procedure. Electronically Signed by WINDY Danielle 10/08/2019 04:28 P Electronically Signed by Kevin Wise MD 10/08/2019 04:49 P
[2019-10-08 20:00] VITALS: BP 139/71
[2019-10-08] MEDS: SENNA 8.6 MG TAB (SENOKOT) PEG SCH (20:58)
[2019-10-09] MEDS: oxyCODONE 5MG TAB PEG SCH ×6 (01:18→21:55)
--- NOTE | 2019-10-09 01:24 | REP ---
Clinical: Postoperative baseline assessment. Technique: AP, lateral, bilateral oblique views of the right and left ankle. Findings: Right ankle demonstrates satisfactory open reduction and fixation for bimalleolar fractures with surrounding postoperative changes noted. Left ankle demonstrates satisfactory open reduction and fixation for bimalleolar fractures with surrounding postoperative changes noted. Impression: Status post open reduction and fixation for bilateral bimalleolar fractures. Electronically Signed by Matt Patel MD 10/09/2019 01:14 A
[2019-10-09] MEDS: PIPERACILLIN/TAZOBACTAM SOD 4.5 GM in D5W MINI-BAG PLUS 50 ML IV SCH ×4 (05:07→23:00)
[2019-10-09 06:00] VITALS: BP 130/69
[2019-10-09 06:48] LABS: BASO # 0.1 10^3/uL (0.0-0.2); BASO % 0.7 % (0.0-1.0); EOS # 0.2 10^3/uL (0.0-0.5); EOS % 2.7 % (0.0-3.0); HEMOGLOBIN 10.8 g/dl (13.5-17.5); LYMPH # 1.5 10^3/uL (1.5-5.0); LYMPH % 17.8 % (24.0-44.0); MEAN CORPUSCULAR HEMOGLOBIN 32.5 pg (27.0-33.0); MEAN CORPUSCULAR HGB CONC 33.8 g/dl (32.0-36.5); MEAN CORPUSCULAR VOLUME 96.4 fl (80.0-96.0); MONO # 0.8 10^3/uL (0.0-0.8); MONO % 9.7 % (0.0-5.0); NEUTROPHILS # 5.5 10^3/uL (1.5-8.5); NEUTROPHILS % 65.2 % (36.0-66.0); PLATELET COUNT, AUTOMATED 372 10^3/uL (150-450); RED BLOOD COUNT 3.32 10^6/uL (4.30-6.10); WHITE BLOOD COUNT 8.5 10^3/uL (4.0-10.0)
[2019-10-09 07:11] LABS: BLOOD UREA NITROGEN 13 MG/DL (7-18); CALCIUM LEVEL 9.2 MG/DL (8.5-10.1); CARBON DIOXIDE LEVEL 30 MEQ/L (21-32); CHLORIDE LEVEL 95 MEQ/L (98-107); GLOMERULAR FILTRATION RATE > 60.0 (>60); GLUCOSE, FASTING 116 MG/DL (70-100); MAGNESIUM LEVEL 2.2 MG/DL (1.8-2.4); POTASSIUM SERUM 4.5 MEQ/L (3.5-5.1); SODIUM LEVEL 133 MEQ/L (136-145)
[2019-10-09] MEDS: GABAPENTIN 100 MG CAP PEG SCH ×3 (07:33→21:54)
[2019-10-09] MEDS: guaiFENesin 200 MG TAB PEG SCH ×3 (07:33→21:52)
[2019-10-09] MEDS: QUEtiapine FUMARATE 12.5 MG HALF-TAB PEG SCH ×2 (07:33→21:52)
[2019-10-09] MEDS: PROPRANOLOL 10 MG TAB PEG SCH ×3 (07:34→21:54)
[2019-10-09] MEDS: ENOXAPARIN 40MG/0.4ML SYRINGE (J1650 PER 10MG) SC SCH (07:35)
[2019-10-09] MEDS: CHLORHEXIDINE GLUCONATE 0.12 % 15ML UDC (PERIDEX ORAL RINSE) XX SCH ×4 (07:35→21:52)
[2019-10-09] MEDS: DOCUSATE SOD LIQ 100MG/10ML UDC GT SCH ×3 (07:35→21:00)
[2019-10-09] MEDS: SODIUM CHLORIDE NASAL 0.65% SPRAY BTL (OCEAN) SCH ×3 (07:36→21:55)
[2019-10-09] MEDS: LANSOPRAZOLE SUSPENSION 30 MG/10 ML ORAL SYRINGE (FIRST-LANSOPRAZOLE) PEG SCH (07:36)
[2019-10-09] MEDS: FLUTICASONE PROP 0.05% NASAL SPRAY 16 GM (FLONASE) NARES SCH ×2 (07:36→21:55)
[2019-10-09] MEDS: ACETAMINOPHEN 325 MG/10.15 ML UDC TF SCH ×3 (07:36→21:52)
[2019-10-09] MEDS: BUDESONIDE 180MCG INHALER (PULMICORT FLEXHALER) INH SCH ×2 (08:00→19:54)
[2019-10-09] MEDS: IPRATROPIUM 0.5MG/ALBUTEROL 2.5MG INH SOL UD 3ML (DUONEB)(J7620) NEB SCH ×4 (08:00→19:54)
[2019-10-09] MEDS: BISACODYL 10 MG SUPP PR SCH (08:34)
[2019-10-09] MEDS: REMEDY PHYTOPLEX Z-GUARD PASTE 113GM TUBE (FROM STOREROOM PRODUCT) TOP SCH ×3 (09:00→21:00)
--- NOTE | 2019-10-09 11:41 | IPNPDOC ---
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 He otherwise states he feels well and is wondering about his ankles and the need for further perkins rgery. REVIEW OF SYSTEMS: The following is a completed review of systems and has been reviewed. Review of systems otherwise unremarkable. PAIN: Patient self reports pain everywhere EYES: No recent vision changes EARS, NOSE, & THROAT: +dysphagia (improving) CARDIOVASCULAR: Denies chest pain or palpitations PULMONARY: Denies shortness of breath, +cough (resolved) GASTROINTESTINAL: Denies constipation/diarrhea GENITOURINARY: +retention MUSCULOSKELETAL: bilat LE weakness with bilat ankle fractures NEUROLOGICAL:+paraplegia HEMATOLOGICAL: denies easy bruising SKIN: scattered tattoos, bilat medial/lateral ankle incisions, thoracic incision PSYCHIATRIC: +delirious with visual hallucinations (improving) All other review of systems found to be negative. PHYSICAL EXAMINATION: VITAL SIGNS: Please see below. GENERAL: Pleasant and cooperative. No acute distress. HEENT: PERRL. Extraocular movements intact. Clear conjunctiva, CARDIOVASCULAR: Regular rate and rhythm. No murmurs, rubs, or gallops LUNGS: Clear to auscultation bilaterally. No wheezes. No rhonchi ABDOMEN: Soft, nontender, nondistended. Positive bowel sounds. Normal active bowel sounds, +PEG NEUROLOGICAL: Alert and oriented x3 -Cranial nerves II through XII grossly intact. Sensation grossly intact to light touch and pinprick in bilat LE and sacral region (1+ patella reflex bilat, negative Babinski bilat) EXTREMITIES: 5\\5 strength bilateral upper extremities. 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 Rehab- PT/OT advance mobility- strengthen/stretch/maintain ROM all 4limbs while keeping spinal precautions and NWB bilat LE- multipodus boots to be worn in bed and while in therapy -discussed with Dr. 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 Cardiac: no known hx-monitor for autonomic dysreflexia-optimize pain control, monitor for urinary/fecal retention -c/u propranolol for agitation/storming, will decrease propranolol dosing to 10mg TID as patient clinically improving 4. Resp: patient started on IV Levaquin and Zosyn for sepsis in setting of VAP multifocal pneumonia dx via CTA chest on 10-05-19, sputum growing Klebisella Oxytoca- medicine recs greatly appreciated, c/u IV at least 5 days total, leukocytosis resolved -c/u duonebs, guaifenesin, and budesonide to help reduce upper airway inflammation as patient with constant throat clearing-resolved 5. GI: c/u bowel meds for neurogenic bowel with daily suppository and digital stimulation to trigger recto-colonic reflex 6. : bryant placed over the weekend, while getting IVF in order to help prevent autonomic dysreflexia in setting of likely neurogenic bladder -c/u TOV 7. DVT ppx: lovenox, Doppler negative for DVT 8. Ortho: s/p bilat ankle ORIF, NWB f/u ortho 6-8 weeks -ortho consulted and repeat ankle Xrays showing, "Right ankle demonstrates satisfactory open reduction and fixation for bimalleolar fractures with surrounding postoperative changes noted. Left ankle demonstrates satisfactory open reduction and fixation for bimalleolar fractures with surrounding postoperative changes noted." -[facility] ortho expressed concerned for possible failed surgery on personal viewing of images, however discussed case with Dr. Christian Wise who was able to compare patient's post-op images prior to discharge with 10-08-19 X-rays and does not think there is any change and that ankles are healing well, inhouse ortho has since ordered CT scan and has been asked to discuss case further with original surgeon directly ([phone]) if there continues to be a discrepancy in how to further manage 9. Pain: c/u standing oxycodone, lower from 7.5mg-->5mg (will c/u to lower) , patient reporting his pain is well controlled -c/u gabapentin, tylenol TID 10. Dispo: 10-18-19 to home, progressing towards goals Allergies Coded Allergies: No Known Allergies (Unverified , 10/04/19) Vital Signs Vital Signs Date Time Temp Pulse Resp B/P (MAP) Pulse Ox O2 Delivery O2 Flow Rate FiO2 10/09/19 08:05 16 10/09/19 07:34 80 130/69 10/09/19 06:00 98.0 100 Room Air Laboratory Data CBC/BMP Laboratory Tests 10/09/19 06:22 Labs 24H Laboratory Tests 2 10/09/19 06:22: Immature Granulocyte % (Auto) 3.9H, Neutrophils (%) (Auto) 65.2, Lymphocytes (%) (Auto) 17.8L, Monocytes (%) (Auto) 9.7H, Eosinophils (%) (Auto) 2.7, Basophils (%) (Auto) 0.7, Neutrophils # (Auto) 5.5, Lymphocytes # (Auto) 1.5, Monocytes # (Auto) 0.8, Eosinophils # (Auto) 0.2, Basophils # (Auto) 0.1, Nucleated Red Blood Cells % (auto) 0.0, Anion Gap 8, Glomerular Filtration Rate > 60.0, Calcium Level 9.2, Magnesium Level 2.2 Microbiology Microbiology 10/06/19 Gram Stain - Final, Resulted 10/06/19 Sputum Culture, Resulted Pending 10/06/19 Blood Culture - Preliminary, Resulted No Growth after 72 hours. All specime... 10/05/19 Blood Culture - Preliminary, Resulted No Growth after 72 hours. All specime... 10/04/19 Gram Stain - Final, Complete 10/04/19 Sputum Culture - Final, Complete Klebsiella Oxytoca Current Medications Current Medications Current Medications Medications (Trade) Dose Ordered Sig/Talia Route PRN Reason Start Time Stop Time Status Last Admin Dose Admin Acetaminophen (Tylenol Suspension) 975 mg TID TF 10/04/19 21:00 10/09/19 07:36 Albuterol Sulfate (Proventil, Ventolin Hfa) 2 puff Q4H PRN INH WHEEZING 10/05/19 13:15 Albuterol/ Ipratropium (Duoneb (Ipr 0.5mg/Alb 2.5mg)) 3 ml RQID NEB 10/04/19 20:00 10/08/19 20:26 Albuterol/ Ipratropium (Duoneb (Ipr 0.5mg/Alb 2.5mg)) 3 ml RTID NEB 10/04/19 14:00 10/04/19 18:09 DC Bisacodyl (Dulcolax Suppository) 10 mg ASDIRECTED SC 10/04/19 19:00 10/05/19 14:11 DC Bisacodyl (Dulcolax Suppository) 10 mg DAILY SC 10/07/19 14:45 Bisacodyl (Dulcolax Suppository) 10 mg QPM@1700 SC 10/05/19 17:00 10/07/19 14:36 DC Budesonide (Pulmicort Flexhaler) 2 puff RBID INH 10/04/19 20:00 10/08/19 20:26 Chlorhexidine Gluconate (Peridex Oral Rinse) 15 ml QID XX 10/04/19 21:00 10/09/19 07:35 Docusate Sodium (Colace Liquid) 100 mg TID GT 10/04/19 21:00 10/07/19 14:36 DC 10/07/19 07:44 Docusate Sodium (Colace Liquid) 200 mg TID GT 10/07/19 16:00 10/08/19 15:44 Enoxaparin Sodium (Lovenox) 40 mg DAILY SC 10/05/19 09:00 10/09/19 07:35 Fluticasone Propionate (Flonase 0.05% Nasal [place]) 1 spray BID NARES 10/04/19 21:00 10/09/19 07:36 Gabapentin (Neurontin) 200 mg TID PEG 10/04/19 21:00 10/04/19 18:47 DC Gabapentin (Neurontin) 300 mg TID PEG 10/04/19 21:00 10/09/19 07:33 Guaifenesin (Robitussin Tab) 400 mg TID PEG 10/05/19 09:00 10/09/19 07:33 Guaifenesin (Robitussin) 10 ml TID PEG 10/04/19 21:00 10/05/19 02:48 DC 10/04/19 21:16 Home Med (Med Rec Complete!) ASDIRECTED XX 10/04/19 18:15 10/04/19 18:08 DC Lansoprazole (First-Lansoprazole Oral Suspension) 30 mg DAILY PEG 10/05/19 09:00 10/09/19 07:36 Levofloxacin 750 mg/IV Miscellaneous Supplies 150 ml @ 100 mls/hr Q24H IV 10/05/19 16:00 10/08/19 15:47 Oxycodone HCl (Roxicodone, Oxyir) 5 mg Q8HP PRN PEG PAIN 10/04/19 17:00 10/04/19 18:14 DC Oxycodone HCl (Roxicodone, Oxyir) 5 mg QID PEG 10/04/19 21:00 10/05/19 14:16 DC 10/05/19 12:42 Oxycodone HCl (Roxicodone, Oxyir) 7.5 mg Q4H PEG 10/07/19 17:00 10/09/19 07:35 Oxycodone HCl (Roxicodone, Oxyir) 7.5 mg Q8HP PRN PEG PAIN 10/04/19 18:15 10/05/19 14:15 DC Oxycodone HCl (Roxicodone, Oxyir) 10 mg Q4H PEG 10/05/19 17:00 10/07/19 16:40 DC 10/07/19 12:20 Piperacillin Sod/ Tazobactam Sod 4.5 gm/Dextrose 50 ml @ 50 mls/hr Q6H IV 10/07/19 17:00 10/09/19 11:22 Piperacillin Sod/ Tazobactam Sod 4.5 gm/Dextrose 100 ml @ 100 mls/hr Q6H IV 10/05/19 14:00 10/07/19 14:03 DC 10/07/19 07:39 Propranolol HCl (Inderal) 10 mg Q6H PEG 10/04/19 18:00 10/05/19 14:52 DC 10/05/19 12:41 Propranolol HCl (Inderal) 10 mg TID PEG 10/09/19 16:00 Propranolol HCl (Inderal) 20 mg TID PEG 10/05/19 16:00 10/09/19 08:17 DC 10/09/19 07:34 Propranolol HCl (Inderal) 20 mg TID PEG 10/09/19 16:00 10/09/19 09:50 DC Quetiapine Fumarate (SEROquel) 12.5 mg BID PEG 10/04/19 21:00 10/09/19 07:33 Quetiapine Fumarate (SEROquel) 12.5 mg Q8HP PRN PEG agitation 10/04/19 17:00 10/05/19 04:12 Senna (Senokot) 1 tab DAILY@1200 PEG 10/05/19 12:00 10/07/19 14:36 DC 10/07/19 12:20 Senna (Senokot) 2 tab QHS PEG 10/07/19 21:00 10/07/19 20:35 Sodium Chloride 1,000 ml @ 120 mls/hr Q8H20M IV 10/05/19 15:00 10/07/19 14:03 DC 10/07/19 11:13 Sodium Chloride ([place] Nasal [place]) 2 spray TID NA 10/04/19 21:00 10/09/19 07:36 ARTUR MERRITT MD October 09, 2019 11:41
--- NOTE | 2019-10-09 12:29 | REP ---
CT BILATERAL ANKLES: Axial CT bilateral ankles performed with sagittal and coronal reconstruction images. On the right, an oblique fracture of the distal fibula is fixed by a metallic plate and multiple screws. There are adjacent metallic skin jeff. Alignment appears satisfactory. There is a somewhat comminuted fracture of the medial malleolus extending into the tibiotalar joint. A metallic plate and multiple metallic screws are seen in this region. Alignment appears satisfactory. Tibiotalar joint appears fairly symmetrical. Metallic skin jeff are also seen medially. A screw-hole is seen in the calcaneus from a prior screw at that location. Two tiny fracture fragments are seen anterior to the distal fibula. A few tiny fracture fragments are seen anterior to the medial malleolus. Diffuse soft tissue edema. On the left, there is a fracture of the distal fibula fixed by a metallic plate and multiple metallic screws. There are overlying skin jeff. Alignment appears satisfactory. There is a fracture of the medial malleolus fixed by two metallic screws. Two small metallic plates are seen along the distal tibia medially. There are overlying skin jeff. Alignment of the fracture site appears satisfactory. Screw holes are seen transversely through the distal tibia. Tibiotalar joint appear relatively symmetrical. There are several tiny punctate calcific densities along the anterior margin of the distal end of the tibia, probably representing tiny fracture fragments. A couple are also seen posteriorly adjacent to the tibiotalar joint laterally. Several tiny fracture fragments are seen both anterior and posterior to the medial malleolus. There is diffuse soft tissue edema. Electronically Signed by Kevin Wise MD 10/09/2019 04:43 P
[2019-10-09] MEDS ORDERED: PROPRANOLOL 20 MG TAB PEG SCH (16:00)
[2019-10-09 16:26] VITALS: BP 133/76
[2019-10-09] MEDS: LevoFLOXacin IV 750 MG in IV 1 EA IV SCH (16:29)
[2019-10-09 20:00] VITALS: BP 134/79
[2019-10-09] MEDS: SENNA 8.6 MG TAB (SENOKOT) PEG SCH (21:00)
[2019-10-10] MEDS: oxyCODONE 5MG TAB PEG SCH ×6 (01:44→21:28)
[2019-10-10] MEDS: PIPERACILLIN/TAZOBACTAM SOD 4.5 GM in D5W MINI-BAG PLUS 50 ML IV SCH ×2 (05:43→11:57)
[2019-10-10 06:00] VITALS: BP 144/84
[2019-10-10 06:32] LABS: BASO # 0.1 10^3/uL (0.0-0.2); BASO % 0.9 % (0.0-1.0); EOS # 0.2 10^3/uL (0.0-0.5); EOS % 2.1 % (0.0-3.0); HEMATOCRIT 31.7 % (42.0-52.0); HEMOGLOBIN 10.8 g/dl (13.5-17.5); LYMPH # 1.5 10^3/uL (1.5-5.0); LYMPH % 19.8 % (24.0-44.0); MEAN CORPUSCULAR HEMOGLOBIN 32.5 pg (27.0-33.0); MEAN CORPUSCULAR HGB CONC 34.1 g/dl (32.0-36.5); MEAN CORPUSCULAR VOLUME 95.5 fl (80.0-96.0); MONO # 0.9 10^3/uL (0.0-0.8); MONO % 11.5 % (0.0-5.0); NEUTROPHILS # 4.7 10^3/uL (1.5-8.5); PLATELET COUNT, AUTOMATED 365 10^3/uL (150-450); RED BLOOD COUNT 3.32 10^6/uL (4.30-6.10); WHITE BLOOD COUNT 7.6 10^3/uL (4.0-10.0)
[2019-10-10 06:52] LABS: BLOOD UREA NITROGEN 13 MG/DL (7-18); CARBON DIOXIDE LEVEL 28 MEQ/L (21-32); CHLORIDE LEVEL 96 MEQ/L (98-107); CREATININE FOR GFR 0.74 MG/DL (0.70-1.30); GLOMERULAR FILTRATION RATE > 60.0 (>60); GLUCOSE, FASTING 104 MG/DL (70-100); MAGNESIUM LEVEL 2.2 MG/DL (1.8-2.4); POTASSIUM SERUM 4.3 MEQ/L (3.5-5.1); SODIUM LEVEL 134 MEQ/L (136-145)
--- NOTE | 2019-10-10 07:18 | CR ---
DATE OF CONSULTATION: 10/08/2019 INDICATION: Bilateral ankle fractures. 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 This history is obtained from the medical record. Apparently, he sustained a T12 burst fracture with an incomplete spinal cord injury and underwent internal fixation with pedicle screws. He also sustained bilateral ankle fractures and underwent open reduction internal fixation. The patient was discharged from the hospital in [place], [place] and accepted to the acute rehab unit at [facility] by Dr. Rivera. We are consulted on 10/08/2019 for management of the ankle fractures. I should note that the spine surgery was performed by neurosurgery. In speaking with the patient, he is able to whisper. He does not recall much from the injury. He does report pain in his back and his ankles. He reports intact sensation. For the patient's full past medical history, past surgical history, medications, allergies, social history and review of systems, please see the admitting intake form. With regards to smoking, the patient reports that prior to his fall he was smoking cigarettes, vaping and dipping. PHYSICAL EXAMINATION: This is a gentleman who is resting comfortably in bed. He responds to questions appropriately. Cardiovascular: He has palpable dorsalis pedis pulse. Pulmonary: Nonlabored breathing. Skin: The patient's air cast boots are at the bedside. He had Optifoam dressings on his heels and at the incisions. These dressings which were recently applied were not fully taken down. Nursing notes are reviewed and state that the incisions are clean, dry and intact. On the left leg, the patient was able to fire FHL, weakly gastroc, no tibialis anterior or EHL. On the right leg, he was able to fire tibialis anterior, no EHL, and he could fire FHL. Sensation to light touch in the toes grossly intact. IMAGING STUDIES: We requested x-rays, bilateral ankle x-rays. Operative report and imaging from [place] is not available. Four views of the right ankle reveal ORIF of a bimalleolar fracture with jeff still in the skin. There is a medial buttress plate which has bent at an acute angle suggesting loss of fixation. There is now mal reduction of the medial malleolus. There is a step-off of the articular surface. There are two lag screws that appear to be in a separate anterior medial fragment. Evaluation of the fibula reveals that the fracture is displaced. There are multiple ghost tracks in the fibula, likely from other attempts at screw placement. Impression for right ankle is loss of fixation, mal reduction with hardware failure. Four views of the left ankle reveal ORIF of a bimalleolar fracture with additional syndesmotic fixation, likely an Arthrex tightrope. The medial malleolus appears well reduced. The fibula has lost reduction. This is seen on both AP and lateral views. The fibula is angulated and somewhat translated. There are some lucencies around the screws, especially distally suggesting loose hardware. CT scan was just obtained, this will be reviewed by a foot and ankle specialist. ASSESSMENT/PLAN: Hakeem Cope is status of bilateral ankle ORIF. There appears to be a loss of the reduction. CT scans will be reviewed by foot and ankle specialist. Further recommendations to follow.
[2019-10-10] MEDS: BUDESONIDE 180MCG INHALER (PULMICORT FLEXHALER) INH SCH ×3 (07:19→19:42)
[2019-10-10] MEDS: IPRATROPIUM 0.5MG/ALBUTEROL 2.5MG INH SOL UD 3ML (DUONEB)(J7620) NEB SCH ×4 (07:29→19:41)
[2019-10-10] MEDS: REMEDY PHYTOPLEX Z-GUARD PASTE 113GM TUBE (FROM STOREROOM PRODUCT) TOP SCH ×3 (09:00→21:00)
[2019-10-10] MEDS: GABAPENTIN 100 MG CAP PEG SCH ×3 (09:51→21:26)
[2019-10-10] MEDS: LANSOPRAZOLE SUSPENSION 30 MG/10 ML ORAL SYRINGE (FIRST-LANSOPRAZOLE) PEG SCH (09:52)
[2019-10-10] MEDS: DOCUSATE SOD LIQ 100MG/10ML UDC GT SCH ×2 (09:52→21:00)
[2019-10-10] MEDS: QUEtiapine FUMARATE 12.5 MG HALF-TAB PEG SCH (09:52)
[2019-10-10] MEDS: ACETAMINOPHEN 325 MG/10.15 ML UDC TF SCH ×3 (09:52→21:28)
[2019-10-10] MEDS: guaiFENesin 200 MG TAB PEG SCH ×3 (09:52→21:26)
[2019-10-10] MEDS: CHLORHEXIDINE GLUCONATE 0.12 % 15ML UDC (PERIDEX ORAL RINSE) XX SCH ×4 (09:52→21:28)
[2019-10-10] MEDS: FLUTICASONE PROP 0.05% NASAL SPRAY 16 GM (FLONASE) NARES SCH ×2 (09:53→21:00)
[2019-10-10] MEDS: SODIUM CHLORIDE NASAL 0.65% SPRAY BTL (OCEAN) SCH ×3 (09:53→21:00)
[2019-10-10] MEDS: PROPRANOLOL 10 MG TAB PEG SCH ×3 (09:54→21:27)
[2019-10-10] MEDS: ENOXAPARIN 40MG/0.4ML SYRINGE (J1650 PER 10MG) SC SCH (09:54)
[2019-10-10] MEDS: BISACODYL 10 MG SUPP PR SCH ×2 (11:44→13:05)
--- NOTE | 2019-10-10 12:36 | IPNPDOC ---
PM&R Progress Note DATE OF SERVICE: October 10, 2019 [employer] Progress Note Subjective: Patient reporting he is feeling well, his cough is much better and he is able to propel his wheelchair independently. REVIEW OF SYSTEMS: The following is a completed review of systems and has been reviewed. Review of systems otherwise unremarkable. PAIN: Patient self reports pain everywhere EYES: No recent vision changes EARS, NOSE, & THROAT: +dysphagia (improving) CARDIOVASCULAR: Denies chest pain or palpitations PULMONARY: Denies shortness of breath, +cough (resolved) GASTROINTESTINAL: Denies constipation/diarrhea GENITOURINARY: +retention MUSCULOSKELETAL: bilat LE weakness with bilat ankle fractures NEUROLOGICAL:+paraplegia HEMATOLOGICAL: denies easy bruising SKIN: scattered tattoos, bilat medial/lateral ankle incisions, thoracic incision PSYCHIATRIC: +delirious with visual hallucinations (improving) All other review of systems found to be negative. PHYSICAL EXAMINATION: VITAL SIGNS: Please see below. GENERAL: Pleasant and cooperative. No acute distress. HEENT: PERRL. Extraocular movements intact. Clear conjunctiva, CARDIOVASCULAR: Regular rate and rhythm. No murmurs, rubs, or gallops LUNGS: Clear to auscultation bilaterally. No wheezes. No rhonchi ABDOMEN: Soft, nontender, nondistended. Positive bowel sounds. Normal active b owel sounds, +PEG NEUROLOGICAL: Alert and oriented x3 -Cranial nerves II through XII grossly intact. Sensation grossly intact to light touch and pinprick in bilat LE and sacral region (1+ patella reflex bilat, negative Babinski bilat) EXTREMITIES: 5\\5 strength bilateral upper extremities. 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 Rehab- PT/OT advance mobility- strengthen/stretch/maintain ROM all 4limbs while keeping spinal precautions and NWB bilat LE- multipodus boots to be worn in bed and while in therapy -discussed with Dr. Christian Wise his ortho doc at [facility] his f/u ankle images- ok for AROM of both ankles [employer]-MBS ordered 10-08-19, patient advanced to jacky and jeffe -cog for TBI 2. 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 Cardiac: no known hx-monitor for autonomic dysreflexia-optimize pain control, monitor for urinary/fecal retention -c/u propranolol for agitation/storming, will decrease propranolol dosing to 10mg TID as patient clinically improving 4. Resp: patient started on IV Levaquin and Zosyn for sepsis in setting of VAP multifocal pneumonia dx via CTA chest on 10-05-19, sputum growing Klebisella Oxytoca and f/u sputum psotiive for strep group F sensitive to Levaquin, discussed with medicine, ok to d/c IV and c/u on oral Levaquin- medicine recs greatly appreciated-leukocytosis resolved -c/u duonebs, guaifenesin, and budesonide to help reduce upper airway inflammation as patient with constant throat clearing-resolved 5. GI: c/u bowel meds for neurogenic bowel with daily suppository and digital stimulation to trigger recto-colonic reflex 6. : patient has not voided in over 24 hours will replace Kamara as patient disinclined to try self-cathing at this time 7. DVT ppx: lovenox, Doppler negative for DVT 8. Ortho: s/p bilat ankle ORIF, NWB f/u ortho 6-8 weeks -post-op Xrays show "Right ankle demonstrates satisfactory open reduction and fixation for bimalleolar fractures with surrounding postoperative changes noted. Left ankle demonstrates satisfactory open reduction and fixation for bimalleolar fractures with surrounding postoperative changes noted." -[facility] ortho expressed concerned for possible failed surgery on personal viewing of images, however discussed case with Dr. Christian Wise who was able to compare patient's post-op images prior to discharge with 10-08-19 X-rays and does not think there is any change and that ankles are healing well, -f/u CT scan ordered by inhouse ortho reading showing satisfactory post-op surgical alignment, discussed case with Dr. Lancaster foot-ankle specialist who reviewed all images and does NOT believe this is a failed surgery, will have patient f/u with Dr. Wise for further management 9. Pain: c/u standing oxycodone lowered to 5mg (will change to prn prior to /c) , patient reporting his pain is well controlled -c/u gabapentin, tylenol TID 10. Dispo: 10-18-19 to home, progressing towards goals DME: patient will require a wheelchair as he is paraplegic and cannot bear weight through his feet due to ankle fractures. He will need a wheelchair to complete his MRADLs in a timely and safe manner and is unable to use a walker or cane. his home is wheelchair accessible, he agrees to use it and his family can help him. Allergies Coded Allergies: No Known Allergies (Unverified , 10/04/19) Vital Signs Vital Signs Date Time Temp Pulse Resp B/P (MAP) Pulse Ox O2 Delivery O2 Flow Rate FiO2 10/10/19 09:54 90 144/84 10/10/19 09:52 18 10/10/19 06:00 99.1 99 Room Air Laboratory Data CBC/BMP Laboratory Tests 10/10/19 06:12 Labs 24H Laboratory Tests 2 10/10/19 06:12: Immature Granulocyte % (Auto) 3.7H, Neutrophils (%) (Auto) 62.0, Lymphocytes (%) (Auto) 19.8L, Monocytes (%) (Auto) 11.5H, Eosinophils (%) (Auto) 2.1, Basophils (%) (Auto) 0.9, Neutrophils # (Auto) 4.7, Lymphocytes # (Auto) 1.5, Monocytes # (Auto) 0.9H, Eosinophils # (Auto) 0.2, Basophils # (Auto) 0.1, Nucleated Red Blood Cells % (auto) 0.0, Anion Gap 10, Glomerular Filtration Rate > 60.0, Ca lcium Level 9.0, Magnesium Level 2.2 Microbiology Microbiology 10/06/19 Gram Stain - Final, Complete 10/06/19 Sputum Culture - Final, Complete Strep (Group F) Constellatus 10/06/19 Blood Culture - Preliminary, Resulted No Growth after 72 hours. All specime... 10/05/19 Blood Culture - Preliminary, Resulted No Growth after 72 hours. All specime... 10/04/19 Gram Stain - Final, Complete 10/04/19 Sputum Culture - Final, Complete Klebsiella Oxytoca Current Medications Current Medications Current Medications Medications (Trade) Dose Ordered Sig/Talia Route PRN Reason Start Time Stop Time Status Last Admin Dose Admin Acetaminophen (Tylenol Suspension) 975 mg TID TF 10/04/19 21:00 10/10/19 09:52 Albuterol Sulfate (Proventil, Ventolin Hfa) 2 puff Q4H PRN INH WHEEZING 10/05/19 13:15 Albuterol/ Ipratropium (Duoneb (Ipr 0.5mg/Alb 2.5mg)) 3 ml RQID NEB 10/04/19 20:00 10/10/19 07:29 Albuterol/ Ipratropium (Duoneb (Ipr 0.5mg/Alb 2.5mg)) 3 ml RTID NEB 10/04/19 14:00 10/04/19 18:09 DC Bisacodyl (Dulcolax Suppository) 10 mg ASDIRECTED VT 10/04/19 19:00 10/05/19 14:11 DC Bisacodyl (Dulcolax Suppository) 10 mg DAILY VT 10/07/19 14:45 Bisacodyl (Dulcolax Suppository) 10 mg QPM@1700 VT 10/05/19 17:00 10/07/19 14:36 DC Budesonide (Pulmicort Flexhaler) 2 puff RBID INH 10/04/19 20:00 10/10/19 07:28 Chlorhexidine Gluconate (Peridex Oral Rinse) 15 ml QID XX 10/04/19 21:00 10/10/19 09:52 Docusate Sodium (Colace Liquid) 100 mg BID GT 10/09/19 21:00 10/10/19 09:52 Docusate Sodium (Colace Liquid) 100 mg TID GT 10/04/19 21:00 10/07/19 14:36 DC 10/07/19 07:44 Docusate Sodium (Colace Liquid) 200 mg TID GT 10/07/19 16:00 10/09/19 12:07 DC 10/08/19 15:44 Enoxaparin Sodium (Lovenox) 40 mg DAILY SC 10/05/19 09:00 10/10/19 09:54 Fluticasone Propionate (Flonase 0.05% Nasal [place]) 1 spray BID NARES 10/04/19 21:00 10/10/19 09:53 Gabapentin (Neurontin) 200 mg TID PEG 10/04/19 21:00 10/04/19 18:47 DC Gabapentin (Neurontin) 300 mg TID PEG 10/04/19 21:00 10/10/19 09:51 Guaifenesin (Robitussin Tab) 400 mg TID PEG 10/05/19 09:00 10/10/19 09:52 Guaifenesin (Robitussin) 10 ml TID PEG 10/04/19 21:00 10/05/19 02:48 DC 10/04/19 21:16 Home Med (Med Rec Complete!) ASDIRECTED XX 10/04/19 18:15 10/04/19 18:08 DC Lansoprazole (First-Lansoprazole Oral Suspension) 30 mg DAILY PEG 10/05/19 09:00 10/10/19 09:52 Levofloxacin 750 mg/IV Miscellaneous Supplies 150 ml @ 100 mls/hr Q24H IV 10/05/19 16:00 10/09/19 16:29 Oxycodone HCl (Roxicodone, Oxyir) 5 mg Q4H PEG 10/09/19 17:00 10/10/19 09:52 Oxycodone HCl (Roxicodone, Oxyir) 5 mg Q8HP PRN PEG PAIN 10/04/19 17:00 10/04/19 18:14 DC Oxycodone HCl (Roxicodone, Oxyir) 5 mg QID PEG 10/04/19 21:00 10/05/19 14:16 DC 10/05/19 12:42 Oxycodone HCl (Roxicodone, Oxyir) 7.5 mg Q4H PEG 10/07/19 17:00 10/09/19 13:37 DC 10/09/19 12:21 Oxycodone HCl (Roxicodone, Oxyir) 7.5 mg Q8HP PRN PEG PAIN 10/04/19 18:15 10/05/19 14:15 DC Oxycodone HCl (Roxicodone, Oxyir) 10 mg Q4H PEG 10/05/19 17:00 10/07/19 16:40 DC 10/07/19 12:20 Piperacillin Sod/ Tazobactam Sod 4.5 gm/Dextrose 50 ml @ 50 mls/hr Q6H IV 10/07/19 17:00 10/10/19 05:43 Piperacillin Sod/ Tazobactam Sod 4.5 gm/Dextrose 100 ml @ 100 mls/hr Q6H IV 10/05/19 14:00 10/07/19 14:03 DC 10/07/19 07:39 Propranolol HCl (Inderal) 10 mg Q6H PEG 10/04/19 18:00 10/05/19 14:52 DC 10/05/19 12:41 Propranolol HCl (Inderal) 10 mg TID PEG 10/09/19 16:00 10/10/19 09:54 Propranolol HCl (Inderal) 20 mg TID PEG 10/05/19 16:00 10/09/19 08:17 DC 10/09/19 07:34 Propranolol HCl (Inderal) 20 mg TID PEG 10/09/19 16:00 10/09/19 09:50 DC Quetiapine Fumarate (SEROquel) 12.5 mg BID PEG 10/04/19 21:00 10/10/19 09:52 Quetiapine Fumarate (SEROquel) 12.5 mg Q8HP PRN PEG agitation 10/04/19 17:00 10/05/19 04:12 Senna (Senokot) 1 tab DAILY@1200 PEG 10/05/19 12:00 10/07/19 14:36 DC 10/07/19 12:20 Senna (Senokot) 2 tab QHS PEG 10/07/19 21:00 10/07/19 20:35 Sodium Chloride 1,000 ml @ 120 mls/hr Q8H20M IV 10/05/19 15:00 10/07/19 14:03 DC 10/07/19 11:13 Sodium Chloride ([place] Nasal [place]) 2 spray TID NA 10/04/19 21:00 10/10/19 09:53 ARTUR MERRITT MD October 10, 2019 12:36
[2019-10-10 14:00] VITALS: BP 127/78
[2019-10-10] MEDS: LevoFLOXacin 750 MG TABLET GT SCH (14:39)
[2019-10-10] MEDS ORDERED: oxyCODONE 5MG TAB PO ONE (14:45)
[2019-10-10 20:00] VITALS: BP 138/75
[2019-10-10] MEDS: SENNA 8.6 MG TAB (SENOKOT) PEG SCH (21:00)
[2019-10-11] MEDS: oxyCODONE 5MG TAB PEG SCH ×6 (01:04→20:57)
[2019-10-11] MEDS: LevoFLOXacin 750 MG TABLET GT SCH (05:17)
[2019-10-11 06:00] VITALS: BP 133/67
[2019-10-11 07:06] LABS: BASO # 0.1 10^3/uL (0.0-0.2); BASO % 1.2 % (0.0-1.0); EOS # 0.1 10^3/uL (0.0-0.5); EOS % 1.7 % (0.0-3.0); HEMATOCRIT 32.3 % (42.0-52.0); HEMOGLOBIN 11.3 g/dl (13.5-17.5); LYMPH # 1.5 10^3/uL (1.5-5.0); LYMPH % 19.1 % (24.0-44.0); MEAN CORPUSCULAR HEMOGLOBIN 33.3 pg (27.0-33.0); MEAN CORPUSCULAR VOLUME 95.3 fl (80.0-96.0); MONO % 12.8 % (0.0-5.0); NEUTROPHILS # 4.6 10^3/uL (1.5-8.5); NEUTROPHILS % 60.6 % (36.0-66.0); PLATELET COUNT, AUTOMATED 376 10^3/uL (150-450); RED BLOOD COUNT 3.39 10^6/uL (4.30-6.10); WHITE BLOOD COUNT 7.6 10^3/uL (4.0-10.0)
[2019-10-11] MEDS: IPRATROPIUM 0.5MG/ALBUTEROL 2.5MG INH SOL UD 3ML (DUONEB)(J7620) NEB SCH ×3 (07:09→20:41)
[2019-10-11] MEDS: BUDESONIDE 180MCG INHALER (PULMICORT FLEXHALER) INH SCH ×2 (07:10→20:42)
[2019-10-11 07:35] LABS: BLOOD UREA NITROGEN 11 MG/DL (7-18); CALCIUM LEVEL 8.9 MG/DL (8.5-10.1); CARBON DIOXIDE LEVEL 30 MEQ/L (21-32); CHLORIDE LEVEL 97 MEQ/L (98-107); CREATININE FOR GFR 0.81 MG/DL (0.70-1.30); GLOMERULAR FILTRATION RATE > 60.0 (>60); GLUCOSE, FASTING 96 MG/DL (70-100); MAGNESIUM LEVEL 2.2 MG/DL (1.8-2.4); POTASSIUM SERUM 4.1 MEQ/L (3.5-5.1); SODIUM LEVEL 134 MEQ/L (136-145)
[2019-10-11] MEDS: ACETAMINOPHEN 325 MG/10.15 ML UDC TF SCH ×3 (08:37→20:56)
[2019-10-11] MEDS: guaiFENesin 200 MG TAB PEG SCH ×3 (08:37→20:56)
[2019-10-11] MEDS: GABAPENTIN 100 MG CAP PEG SCH ×3 (08:37→20:56)
[2019-10-11] MEDS: PROPRANOLOL 10 MG TAB PEG SCH ×3 (08:37→20:56)
[2019-10-11] MEDS: SODIUM CHLORIDE NASAL 0.65% SPRAY BTL (OCEAN) SCH ×3 (08:38→20:57)
[2019-10-11] MEDS: ENOXAPARIN 40MG/0.4ML SYRINGE (J1650 PER 10MG) SC SCH (08:38)
[2019-10-11] MEDS: CHLORHEXIDINE GLUCONATE 0.12 % 15ML UDC (PERIDEX ORAL RINSE) XX SCH ×4 (08:38→20:55)
[2019-10-11] MEDS: FLUTICASONE PROP 0.05% NASAL SPRAY 16 GM (FLONASE) NARES SCH ×2 (08:38→20:57)
[2019-10-11] MEDS: DOCUSATE SOD LIQ 100MG/10ML UDC GT SCH ×2 (08:39→20:02)
[2019-10-11] MEDS: LANSOPRAZOLE SUSPENSION 30 MG/10 ML ORAL SYRINGE (FIRST-LANSOPRAZOLE) PEG SCH (08:39)
[2019-10-11] MEDS: REMEDY PHYTOPLEX Z-GUARD PASTE 113GM TUBE (FROM STOREROOM PRODUCT) TOP SCH ×3 (08:39→20:02)
[2019-10-11] MEDS: BISACODYL 10 MG SUPP PR SCH (13:21)
[2019-10-11 14:00] VITALS: BP 144/81
[2019-10-11 20:00] VITALS: BP 117/59
[2019-10-11] MEDS: SENNA 8.6 MG TAB (SENOKOT) PEG SCH (20:02)
[2019-10-12] MEDS: oxyCODONE 5MG TAB PEG SCH ×6 (01:11→21:12)
[2019-10-12] MEDS: LevoFLOXacin 750 MG TABLET GT SCH (05:56)
[2019-10-12 06:00] VITALS: BP 135/72
[2019-10-12] MEDS: BUDESONIDE 180MCG INHALER (PULMICORT FLEXHALER) INH SCH ×2 (07:05→21:18)
[2019-10-12] MEDS: IPRATROPIUM 0.5MG/ALBUTEROL 2.5MG INH SOL UD 3ML (DUONEB)(J7620) NEB SCH ×3 (07:05→21:23)
[2019-10-12 07:19] LABS: BASO % 0.8 % (0.0-1.0); EOS # 0.1 10^3/uL (0.0-0.5); EOS % 2.5 % (0.0-3.0); HEMATOCRIT 32.5 % (42.0-52.0); HEMOGLOBIN 11.6 g/dl (13.5-17.5); LYMPH # 1.1 10^3/uL (1.5-5.0); LYMPH % 20.5 % (24.0-44.0); MEAN CORPUSCULAR HEMOGLOBIN 34.6 pg (27.0-33.0); MEAN CORPUSCULAR HGB CONC 35.7 g/dl (32.0-36.5); MONO # 0.7 10^3/uL (0.0-0.8); MONO % 13.3 % (0.0-5.0); NEUTROPHILS # 3.1 10^3/uL (1.5-8.5); NEUTROPHILS % 58.9 % (36.0-66.0); PLATELET COUNT, AUTOMATED 376 10^3/uL (150-450); RED BLOOD COUNT 3.35 10^6/uL (4.30-6.10); WHITE BLOOD COUNT 5.3 10^3/uL (4.0-10.0)
[2019-10-12 07:36] LABS: BLOOD UREA NITROGEN 11 MG/DL (7-18); CALCIUM LEVEL 9.1 MG/DL (8.5-10.1); CARBON DIOXIDE LEVEL 31 MEQ/L (21-32); CHLORIDE LEVEL 100 MEQ/L (98-107); CREATININE FOR GFR 0.74 MG/DL (0.70-1.30); GLOMERULAR FILTRATION RATE > 60.0 (>60); GLUCOSE, FASTING 98 MG/DL (70-100); MAGNESIUM LEVEL 2.2 MG/DL (1.8-2.4); POTASSIUM SERUM 3.8 MEQ/L (3.5-5.1); SODIUM LEVEL 138 MEQ/L (136-145)
[2019-10-12] MEDS: REMEDY PHYTOPLEX Z-GUARD PASTE 113GM TUBE (FROM STOREROOM PRODUCT) TOP SCH ×3 (09:00→21:00)
[2019-10-12] MEDS: DOCUSATE SOD LIQ 100MG/10ML UDC GT SCH ×3 (09:00→21:00)
[2019-10-12] MEDS: CHLORHEXIDINE GLUCONATE 0.12 % 15ML UDC (PERIDEX ORAL RINSE) XX SCH ×4 (09:23→21:11)
[2019-10-12] MEDS: ACETAMINOPHEN 325 MG/10.15 ML UDC TF SCH ×3 (09:24→21:12)
[2019-10-12] MEDS: guaiFENesin 200 MG TAB PEG SCH ×3 (09:24→21:13)
[2019-10-12] MEDS: GABAPENTIN 100 MG CAP PEG SCH ×3 (09:25→21:13)
[2019-10-12] MEDS: LANSOPRAZOLE SUSPENSION 30 MG/10 ML ORAL SYRINGE (FIRST-LANSOPRAZOLE) PEG SCH (09:25)
[2019-10-12] MEDS: ENOXAPARIN 40MG/0.4ML SYRINGE (J1650 PER 10MG) SC SCH (09:25)
[2019-10-12] MEDS: PROPRANOLOL 10 MG TAB PEG SCH ×3 (09:27→21:13)
[2019-10-12] MEDS: SODIUM CHLORIDE NASAL 0.65% SPRAY BTL (OCEAN) SCH ×3 (09:27→21:00)
[2019-10-12] MEDS: FLUTICASONE PROP 0.05% NASAL SPRAY 16 GM (FLONASE) NARES SCH ×2 (09:28→21:00)
[2019-10-12 14:00] VITALS: BP 133/85
[2019-10-12] MEDS: BISACODYL 10 MG SUPP PR SCH (14:00)
[2019-10-12 20:00] VITALS: BP 125/74
[2019-10-12] MEDS: SENNA 8.6 MG TAB (SENOKOT) PEG SCH (21:00)
[2019-10-13] MEDS: oxyCODONE 5MG TAB PEG SCH ×6 (01:00→21:35)
[2019-10-13] MEDS: LevoFLOXacin 750 MG TABLET GT SCH (05:34)
[2019-10-13 06:00] VITALS: BP 130/71
[2019-10-13 07:08] LABS: HEMATOCRIT 34.1 % (42.0-52.0); HEMOGLOBIN 11.9 g/dl (13.5-17.5); MEAN CORPUSCULAR HEMOGLOBIN 33.8 pg (27.0-33.0); MEAN CORPUSCULAR HGB CONC 34.9 g/dl (32.0-36.5); MEAN CORPUSCULAR VOLUME 96.9 fl (80.0-96.0); PLATELET COUNT, AUTOMATED 362 10^3/uL (150-450); RED BLOOD COUNT 3.52 10^6/uL (4.30-6.10); WHITE BLOOD COUNT 5.1 10^3/uL (4.0-10.0)
[2019-10-13] MEDS: BUDESONIDE 180MCG INHALER (PULMICORT FLEXHALER) INH SCH ×3 (08:00→19:25)
[2019-10-13] MEDS: IPRATROPIUM 0.5MG/ALBUTEROL 2.5MG INH SOL UD 3ML (DUONEB)(J7620) NEB SCH ×4 (08:00→19:25)
[2019-10-13] MEDS: SODIUM CHLORIDE NASAL 0.65% SPRAY BTL (OCEAN) SCH ×3 (08:44→21:35)
[2019-10-13] MEDS: FLUTICASONE PROP 0.05% NASAL SPRAY 16 GM (FLONASE) NARES SCH ×2 (08:44→21:35)
[2019-10-13] MEDS: ENOXAPARIN 40MG/0.4ML SYRINGE (J1650 PER 10MG) SC SCH (08:44)
[2019-10-13] MEDS: CHLORHEXIDINE GLUCONATE 0.12 % 15ML UDC (PERIDEX ORAL RINSE) XX SCH ×4 (08:44→21:32)
[2019-10-13] MEDS: LANSOPRAZOLE SUSPENSION 30 MG/10 ML ORAL SYRINGE (FIRST-LANSOPRAZOLE) PEG SCH (08:44)
[2019-10-13] MEDS: PROPRANOLOL 10 MG TAB PEG SCH ×3 (08:45→21:34)
[2019-10-13] MEDS: GABAPENTIN 100 MG CAP PEG SCH ×3 (08:45→21:35)
[2019-10-13] MEDS: ACETAMINOPHEN 325 MG/10.15 ML UDC TF SCH ×3 (08:45→21:33)
[2019-10-13] MEDS: guaiFENesin 200 MG TAB PEG SCH ×3 (08:46→21:34)
[2019-10-13] MEDS: REMEDY PHYTOPLEX Z-GUARD PASTE 113GM TUBE (FROM STOREROOM PRODUCT) TOP SCH ×3 (08:46→21:00)
[2019-10-13] MEDS: DOCUSATE SOD LIQ 100MG/10ML UDC GT SCH ×2 (09:00→21:33)
[2019-10-13] MEDS: BISACODYL 10 MG SUPP PR SCH (13:41)
[2019-10-13 14:00] VITALS: BP 158/82
[2019-10-13 16:16] VITALS: BP 145/79
[2019-10-13 20:38] VITALS: BP 127/77
[2019-10-13] MEDS: SENNA 8.6 MG TAB (SENOKOT) PEG SCH (21:00)
[2019-10-14] MEDS: oxyCODONE 5MG TAB PEG SCH ×6 (01:09→21:50)
[2019-10-14] MEDS: LevoFLOXacin 750 MG TABLET GT SCH (05:48)
[2019-10-14 06:00] VITALS: BP 146/86
[2019-10-14] MEDS: BUDESONIDE 180MCG INHALER (PULMICORT FLEXHALER) INH SCH ×2 (07:10→19:18)
[2019-10-14] MEDS: IPRATROPIUM 0.5MG/ALBUTEROL 2.5MG INH SOL UD 3ML (DUONEB)(J7620) NEB SCH ×4 (07:10→19:19)
[2019-10-14] MEDS: LANSOPRAZOLE SUSPENSION 30 MG/10 ML ORAL SYRINGE (FIRST-LANSOPRAZOLE) PEG SCH (07:28)
[2019-10-14] MEDS: guaiFENesin 200 MG TAB PEG SCH ×3 (07:28→21:50)
[2019-10-14] MEDS: GABAPENTIN 100 MG CAP PEG SCH ×3 (07:28→21:50)
[2019-10-14] MEDS: ENOXAPARIN 40MG/0.4ML SYRINGE (J1650 PER 10MG) SC SCH (07:28)
[2019-10-14] MEDS: PROPRANOLOL 10 MG TAB PEG SCH ×3 (07:29→21:49)
[2019-10-14] MEDS: REMEDY PHYTOPLEX Z-GUARD PASTE 113GM TUBE (FROM STOREROOM PRODUCT) TOP SCH ×3 (07:29→21:00)
[2019-10-14] MEDS: SODIUM CHLORIDE NASAL 0.65% SPRAY BTL (OCEAN) SCH ×3 (07:29→21:51)
[2019-10-14] MEDS: FLUTICASONE PROP 0.05% NASAL SPRAY 16 GM (FLONASE) NARES SCH ×2 (07:29→21:50)
[2019-10-14] MEDS: CHLORHEXIDINE GLUCONATE 0.12 % 15ML UDC (PERIDEX ORAL RINSE) XX SCH ×4 (07:29→21:51)
[2019-10-14] MEDS: DOCUSATE SOD LIQ 100MG/10ML UDC GT SCH ×2 (07:30→20:27)
[2019-10-14 07:44] LABS: BASO # 0.1 10^3/uL (0.0-0.2); BASO % 1.2 % (0.0-1.0); EOS # 0.2 10^3/uL (0.0-0.5); HEMATOCRIT 36.1 % (42.0-52.0); HEMOGLOBIN 12.5 g/dl (13.5-17.5); LYMPH # 1.1 10^3/uL (1.5-5.0); LYMPH % 25.3 % (24.0-44.0); MEAN CORPUSCULAR HEMOGLOBIN 33.8 pg (27.0-33.0); MEAN CORPUSCULAR HGB CONC 34.6 g/dl (32.0-36.5); MEAN CORPUSCULAR VOLUME 97.6 fl (80.0-96.0); MONO # 0.6 10^3/uL (0.0-0.8); NEUTROPHILS # 2.4 10^3/uL (1.5-8.5); NEUTROPHILS % 55.1 % (36.0-66.0); PLATELET COUNT, AUTOMATED 377 10^3/uL (150-450); WHITE BLOOD COUNT 4.3 10^3/uL (4.0-10.0)
[2019-10-14 08:03] LABS: BLOOD UREA NITROGEN 13 MG/DL (7-18); CALCIUM LEVEL 9.6 MG/DL (8.5-10.1); CARBON DIOXIDE LEVEL 28 MEQ/L (21-32); CHLORIDE LEVEL 101 MEQ/L (98-107); CREATININE FOR GFR 0.73 MG/DL (0.70-1.30); GLOMERULAR FILTRATION RATE > 60.0 (>60); GLUCOSE, FASTING 92 MG/DL (70-100); POTASSIUM SERUM 4.4 MEQ/L (3.5-5.1); SODIUM LEVEL 138 MEQ/L (136-145)
[2019-10-14] MEDS: ACETAMINOPHEN 325 MG/10.15 ML UDC TF SCH (09:00)
[2019-10-14] MEDS: ACETAMINOPHEN 325 MG TAB PEG SCH ×3 (09:00→21:50)
[2019-10-14] MEDS: BISACODYL 10 MG SUPP PR SCH (13:04)
[2019-10-14 14:00] VITALS: BP 146/88
[2019-10-14] MEDS: SENNA 8.6 MG TAB (SENOKOT) PEG SCH (20:27)
[2019-10-14 20:40] VITALS: BP 139/96
[2019-10-15] MEDS: oxyCODONE 5MG TAB PEG SCH ×4 (01:00→14:14)
[2019-10-15] MEDS: LevoFLOXacin 750 MG TABLET GT SCH (05:33)
[2019-10-15 06:00] VITALS: BP 127/91
[2019-10-15] MEDS: BUDESONIDE 180MCG INHALER (PULMICORT FLEXHALER) INH SCH ×2 (07:20→20:00)
[2019-10-15] MEDS: IPRATROPIUM 0.5MG/ALBUTEROL 2.5MG INH SOL UD 3ML (DUONEB)(J7620) NEB SCH ×4 (07:20→21:04)
[2019-10-15] MEDS: REMEDY PHYTOPLEX Z-GUARD PASTE 113GM TUBE (FROM STOREROOM PRODUCT) TOP SCH ×3 (09:00→21:00)
[2019-10-15] MEDS: DOCUSATE SOD LIQ 100MG/10ML UDC GT SCH ×2 (09:00→21:01)
[2019-10-15] MEDS: ENOXAPARIN 40MG/0.4ML SYRINGE (J1650 PER 10MG) SC SCH (09:38)
[2019-10-15] MEDS: CHLORHEXIDINE GLUCONATE 0.12 % 15ML UDC (PERIDEX ORAL RINSE) XX SCH ×4 (09:38→21:01)
[2019-10-15] MEDS: PROPRANOLOL 10 MG TAB PEG SCH ×3 (09:39→21:03)
[2019-10-15] MEDS: ACETAMINOPHEN 325 MG TAB PEG SCH ×3 (09:39→21:02)
[2019-10-15] MEDS: LANSOPRAZOLE SUSPENSION 30 MG/10 ML ORAL SYRINGE (FIRST-LANSOPRAZOLE) PEG SCH (09:39)
[2019-10-15] MEDS: GABAPENTIN 100 MG CAP PEG SCH ×3 (09:40→21:02)
[2019-10-15] MEDS: guaiFENesin 200 MG TAB PEG SCH ×3 (09:40→21:02)
[2019-10-15] MEDS: SODIUM CHLORIDE NASAL 0.65% SPRAY BTL (OCEAN) SCH ×3 (09:41→21:03)
[2019-10-15] MEDS: FLUTICASONE PROP 0.05% NASAL SPRAY 16 GM (FLONASE) NARES SCH ×2 (09:42→21:03)
[2019-10-15 14:00] VITALS: BP 144/78
[2019-10-15] MEDS: BISACODYL 10 MG SUPP PR SCH (14:00)
[2019-10-15 14:16] VITALS: BP 128/82
[2019-10-15] MEDS ORDERED: oxyCODONE 5MG TAB PEG PRN (14:30)
--- NOTE | 2019-10-15 15:18 | IPNPDOC ---
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 REVIEW OF SYSTEMS: The following is a completed review of systems and has been reviewed. Review of systems otherwise unremarkable. PAIN: Patient self reports pain everywhere EYES: No recent vision changes EARS, NOSE, & THROAT: +dysphagia (improving) CARDIOVASCULAR: Denies chest pain or palpitations PULMONARY: Denies shortness of breath, +cough (resolved) GASTROINTESTINAL: Denies constipation/diarrhea GENITOURINARY: +retention MUSCULOSKELETAL: bilat LE weakness with bilat ankle fractures NEUROLOGICAL:+paraplegia HEMATOLOGICAL: denies easy bruising SKIN: scattered tattoos, bilat medial/lateral ankle incisions, thoracic incision PSYCHIATRIC: +delirious with visual hallucinations (improving) All other review of systems found to be negative. PHYSICAL EXAMINATION: VITAL SIGNS: Please see below. GENERAL: Pleasant and cooperative. No acute distress. HEENT: PERRL. Extraocular movements intact. Clear conjunctiva, CARDIOVASCULAR: Regular rate and rhythm. No murmurs, rubs, or gallops LUNGS: Clear to auscultation bilaterally. No wheezes. No rhonchi ABDOMEN: Soft, nontender, nondistended. Positive bowel sounds. Normal active bowel sounds, +PEG NEUROLOGICAL: Alert and oriented x3 -Cranial nerves II through XII grossly intact. Sensation grossly intact to light touch and pinprick in bilat LE and sacral region (1+ patella reflex bilat, negative Babinski bilat) EXTREMITIES: 5\\5 strength bilateral upper extremities. 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 Rehab- PT/OT advance mobility- strengthen/stretch/maintain ROM all 4limbs while keeping spinal precautions and NWB bilat LE- multipodus boots to be worn in bed and while in therapy -discussed with Dr. 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 Cardiac: no known hx-monitor for autonomic dysreflexia-optimize pain control, monitor for urinary/fecal retention -c/u propranolol for agitation/storming, will decrease propranolol dosing to 10mg TID as patient clinically improving 4. Resp: patient started on IV Levaquin and Zosyn for sepsis in setting of VAP multifocal pneumonia dx via CTA chest on 10-05-19, sputum growing Klebisella Oxytoca and f/u sputum psotiive for strep group F sensitive to Levaquin, discussed with medicine, ok to d/c IV and c/u on oral Levaquin- medicine recs greatly appreciated-leukocytosis resolved -c/u duonebs, guaifenesin, and budesonide to help reduce upper airway infl ammation as patient with constant throat clearing-resolved 5. GI: c/u bowel meds for neurogenic bowel with daily suppository and digital stimulation to trigger recto-colonic reflex 6. : patient has not voided in over 24 hours will replace Kamara as patient disinclined to try self-cathing at this time 7. DVT ppx: lovenox, Doppler negative for DVT 8. Ortho: s/p bilat ankle ORIF, NWB f/u ortho 6-8 weeks -post-op Xrays show "Right ankle demonstrates satisfactory open reduction and fixation for bimalleolar fractures with surrounding postoperative changes noted. Left ankle demonstrates satisfactory open reduction and fixation for bimalleolar fractures with surrounding postoperative changes noted." -[facility] ortho expressed concerned for possible failed surgery on personal viewing of images, however discussed case with Dr. Christian Wise who was able to compare patient's post-op images prior to discharge with 10-08-19 X-rays and does not think there is any change and that ankles are healing well, -f/u CT scan ordered by inhouse ortho reading showing satisfactory post-op surgical alignment, discussed case with Dr. Lancaster foot-ankle specialist who reviewed all images and does NOT believe this is a failed surgery, will have patient f/u with Dr. Wise for further management 9. Pain: c/u standing oxycodone lowered to 5mg (changed to prn) , patient reporting his pain is well controlled -c/u gabapentin, tylenol TID 10. Dispo: 10-16-19 to home, progressing towards goals DME: patient will require a wheelchair as he is paraplegic and cannot bear weight through his feet due to ankle fractures. He will need a wheelchair to complete his MRADLs in a timely and safe manner and is unable to use a walker or cane. his home is wheelchair accessible, he agrees to use it and his family can help him. Allergies Coded Allergies: No Known Allergies (Unverified , 10/04/19) Vital Signs Vital Signs Date Time Temp Pulse Resp B/P (MAP) Pulse Ox O2 Delivery O2 Flow Rate FiO2 10/15/19 14:16 97.7 92 18 128/82 (97) 100 Room Air Microbiology Microbiology 10/06/19 Gram Stain - Final, Complete 10/06/19 Sputum Culture - Final, Complete Strep (Group F) Constellatus 10/06/19 Blood Culture - Final, Complete NO GROWTH AFTER 5 DAYS 10/05/19 Blood Culture - Final, Complete NO GROWTH AFTER 5 DAYS Current Medications Current Medications Current Medications Medications (Trade) Dose Ordered Sig/Talia Route PRN Reason Start Time Stop Time Status Last Admin Dose Admin Acetaminophen (Tylenol Suspension) 975 mg TID TF 10/04/19 21:00 10/14/19 10:45 DC 10/13/19 21:33 Acetaminophen (Tylenol Tab) 975 mg TID PEG 10/14/19 09:00 10/15/19 09:39 Albuterol Sulfate (Proventil, Ventolin Hfa) 2 puff Q4H PRN INH WHEEZING 10/05/19 13:15 Albuterol/ Ipratropium (Duoneb (Ipr 0.5mg/Alb 2.5mg)) 3 ml RQID NEB 10/04/19 20:00 10/15/19 11:44 Albuterol/ Ipratropium (Duoneb (Ipr 0.5mg/Alb 2.5mg)) 3 ml RTID NEB 10/04/19 14:00 10/04/19 18:09 DC Bisacodyl (Dulcolax Suppository) 10 mg ASDIRECTED [place] 10/04/19 19:00 10/05/19 14:11 DC Bisacodyl (Dulcolax Suppository) 10 mg DAILY [place] 10/07/19 14:45 10/10/19 11:42 DC Bisacodyl (Dulcolax Suppository) 10 mg DAILY@1400 [place] 10/10/19 14:00 Bisacodyl (Dulcolax Suppository) 10 mg QPM@1700 [place] 10/05/19 17:00 10/07/19 14:36 DC Budesonide (Pulmicort Flexhaler) 2 puff RBID INH 10/04/19 20:00 10/15/19 07:20 Chlorhexidine Gluconate (Peridex Oral Rinse) 15 ml QID XX 10/04/19 21:00 10/15/19 09:38 Docusate Sodium (Colace Liquid) 100 mg BID GT 10/09/19 21:00 10/13/19 21:33 Docusate Sodium (Colace Liquid) 100 mg TID GT 10/04/19 21:00 10/07/19 14:36 DC 10/07/19 07:44 Docusate Sodium (Colace Liquid) 200 mg TID GT 10/07/19 16:00 10/09/19 12:07 DC 10/08/19 15:44 Enoxaparin Sodium (Lovenox) 40 mg DAILY SC 10/05/19 09:00 10/15/19 09:38 Fluticasone Propionate (Flonase 0.05% Nasal Tensed) 1 spray BID NARES 10/04/19 21:00 10/15/19 09:42 Gabapentin (Neurontin) 200 mg TID PEG 10/04/19 21:00 10/04/19 18:47 DC Gabapentin (Neurontin) 200 mg TID PEG 10/15/19 16:00 Gabapentin (Neurontin) 300 mg TID PEG 10/04/19 21:00 10/15/19 14:25 DC 10/15/19 09:40 Guaifenesin (Robitussin Tab) 400 mg TID PEG 10/05/19 09:00 10/15/19 09:40 Guaifenesin (Robitussin) 10 ml TID PEG 10/04/19 21:00 10/05/19 02:48 DC 10/04/19 21:16 Home Med (Med Rec Complete!) ASDIRECTED XX 10/04/19 18:15 10/04/19 18:08 DC Lansoprazole (First-Lansoprazole Oral Suspension) 30 mg DAILY PEG 10/05/19 09:00 10/15/19 09:39 Levofloxacin (Levaquin) 750 mg DAILY@06 GT 10/10/19 06:00 10/18/19 05:59 10/15/19 05:33 Levofloxacin 750 mg/IV Miscellaneous Supplies 150 ml @ 100 mls/hr Q24H IV 10/05/19 16:00 10/10/19 12:38 DC 10/09/19 16:29 Oxycodone HCl (Roxicodone, Oxyir) 5 mg Q4H PEG 10/09/19 17:00 10/15/19 14:25 DC 10/15/19 14:14 Oxycodone HCl (Roxicodone, Oxyir) 5 mg Q4H PRN PEG pain 10/15/19 14:30 Oxycodone HCl (Roxicodone, Oxyir) 5 mg Q8HP PRN PEG PAIN 10/04/19 17:00 10/04/19 18:14 DC Oxycodone HCl (Roxicodone, Oxyir) 5 mg QID PEG 10/04/19 21:00 10/05/19 14:16 DC 10/05/19 12:42 Oxycodone HCl (Roxicodone, Oxyir) 7.5 mg Q4H PEG 10/07/19 17:00 10/09/19 13:37 DC 10/09/19 12:21 Oxycodone HCl (Roxicodone, Oxyir) 7.5 mg Q8HP PRN PEG PAIN 10/04/19 18:15 10/05/19 14:15 DC Oxycodone HCl (Roxicodone, Oxyir) 10 mg Q4H PEG 10/05/19 17:00 10/07/19 16:40 DC 10/07/19 12:20 Piperacillin Sod/ Tazobactam Sod 4.5 gm/Dextrose 50 ml @ 50 mls/hr Q6H IV 10/07/19 17:00 10/10/19 12:38 DC 10/10/19 11:57 Piperacillin Sod/ Tazobactam Sod 4.5 gm/Dextrose 100 ml @ 100 mls/hr Q6H IV 10/05/19 14:00 10/07/19 14:03 DC 10/07/19 07:39 Propranolol HCl (Inderal) 10 mg Q6H PEG 10/04/19 18:00 10/05/19 14:52 DC 10/05/19 12:41 Propranolol HCl (Inderal) 10 mg TID PEG 10/09/19 16:00 10/15/19 09:39 Propranolol HCl (Inderal) 20 mg TID PEG 10/05/19 16:00 10/09/19 08:17 DC 10/09/19 07:34 Propranolol HCl (Inderal) 20 mg TID PEG 10/09/19 16:00 10/09/19 09:50 DC Quetiapine Fumarate (SEROquel) 12.5 mg BID PEG 10/04/19 21:00 10/10/19 12:38 DC 10/10/19 09:52 Quetiapine Fumarate (SEROquel) 12.5 mg Q8HP PRN PEG agitation 10/04/19 17:00 10/05/19 04:12 Senna (Senokot) 1 tab DAILY@1200 PEG 10/05/19 12:00 10/07/19 14:36 DC 10/07/19 12:20 Senna (Senokot) 2 tab QHS PEG 10/07/19 21:00 10/07/19 20:35 Sodium Chloride 1,000 ml @ 120 mls/hr Q8H20M IV 10/05/19 15:00 10/07/19 14:03 DC 10/07/19 11:13 Sodium Chloride ([place] Nasal Tensed) 2 spray TID NA 10/04/19 21:00 10/15/19 09:41 ARTUR MERRITT MD October 15, 2019 15:18
[2019-10-15 20:30] VITALS: BP 119/65
[2019-10-15] MEDS: SENNA 8.6 MG TAB (SENOKOT) PEG SCH ×2 (21:00→21:04)
[2019-10-16 06:00] VITALS: BP 122/71
[2019-10-16] MEDS: LevoFLOXacin 750 MG TABLET GT SCH (06:02)
[2019-10-16 06:46] LABS: MEAN CORPUSCULAR HEMOGLOBIN 33.5 pg (27.0-33.0); MEAN CORPUSCULAR HGB CONC 34.2 g/dl (32.0-36.5); MEAN CORPUSCULAR VOLUME 97.9 fl (80.0-96.0); PLATELET COUNT, AUTOMATED 351 10^3/uL (150-450); RED BLOOD COUNT 3.88 10^6/uL (4.30-6.10); WHITE BLOOD COUNT 4.7 10^3/uL (4.0-10.0)
[2019-10-16] MEDS: BUDESONIDE 180MCG INHALER (PULMICORT FLEXHALER) INH SCH (07:09)
[2019-10-16] MEDS: IPRATROPIUM 0.5MG/ALBUTEROL 2.5MG INH SOL UD 3ML (DUONEB)(J7620) NEB SCH ×2 (07:09→11:04)
[2019-10-16] MEDS: DOCUSATE SOD LIQ 100MG/10ML UDC GT SCH (09:00)
[2019-10-16] MEDS: REMEDY PHYTOPLEX Z-GUARD PASTE 113GM TUBE (FROM STOREROOM PRODUCT) TOP SCH (09:00)
[2019-10-16] MEDS: CHLORHEXIDINE GLUCONATE 0.12 % 15ML UDC (PERIDEX ORAL RINSE) XX SCH (09:00)
[2019-10-16] MEDS: GABAPENTIN 100 MG CAP PEG SCH (09:03)
[2019-10-16 09:04] VITALS: BP 122/71
[2019-10-16] MEDS: ACETAMINOPHEN 325 MG TAB PEG SCH (09:04)
[2019-10-16] MEDS: PROPRANOLOL 10 MG TAB PEG SCH (09:04)
[2019-10-16] MEDS: guaiFENesin 200 MG TAB PEG SCH (09:04)
[2019-10-16] MEDS: LANSOPRAZOLE SUSPENSION 30 MG/10 ML ORAL SYRINGE (FIRST-LANSOPRAZOLE) PEG SCH (09:05)
[2019-10-16] MEDS: ENOXAPARIN 40MG/0.4ML SYRINGE (J1650 PER 10MG) SC SCH (09:05)
[2019-10-16] MEDS: SODIUM CHLORIDE NASAL 0.65% SPRAY BTL (OCEAN) SCH (09:05)
[2019-10-16] MEDS: FLUTICASONE PROP 0.05% NASAL SPRAY 16 GM (FLONASE) NARES SCH (09:05)
[2019-10-16] MEDS ORDERED: XARE10TA PO (11:07)
[2019-10-16] MEDS ORDERED: PROP10TA56 PEG (11:07)
[2019-10-16] MEDS ORDERED: COLA100C5 PO (11:07)
[2019-10-16] MEDS ORDERED: VENTAER INH (11:07)
[2019-10-16] MEDS ORDERED: GABA-1171 PEG (11:07)
[2019-10-16] MEDS ORDERED: BISA10SU PR (11:07)
[2019-10-16] MEDS ORDERED: ACET1TAB55 PEG (11:07)
[2019-10-16] MEDS ORDERED: OXYC-517 PEG (11:07)
[2019-10-16] MEDS ORDERED: SENN18TA PEG (11:07)
[2019-10-16] MEDS ORDERED: FLUTISP NARES (11:07)
--- NOTE | 2019-10-21 13:50 | IPNPDOC ---
PM&R Progress Note DATE OF SERVICE: October 16, 2019 Lath Tier Progress Note Subjective: Patient educated on importance of maintain bowel regimen, skin pressure ulcer prevention, and was to do if he develops autonomic dysreflexia. HAndouts were also provided to him. He agreed to do PENELOPE SCI exam. REVIEW OF SYSTEMS: The following is a completed review of systems and has been reviewed. Review of systems otherwise unremarkable. PAIN: Patient self reports pain everywhere EYES: No recent vision changes EARS, NOSE, & THROAT: +dysphagia (improving) CARDIOVASCULAR: Denies chest pain or palpitations PULMONARY: Denies shortness of breath, +cough (resolved) GASTROINTESTINAL: Denies constipation/diarrhea GENITOURINARY: +retention MUSCULOSKELETAL: bilat LE weakness with bilat ankle fractures NEUROLOGICAL:+paraplegia HEMATOLOGICAL: denies easy bruising SKIN: scattered tattoos, bilat medial/lateral ankle incisions, thoracic incision PSYCHIATRIC: +delirious with visual hallucinations (improving) All other review of systems found to be negative. PHYSICAL EXAMINATION: VITAL SIGNS: Please see below. GENERAL: Pleasant and cooperative. No acute distress. HEENT: PERRL. Extraocular movements intact. Clear conjunctiva, CARDIOVASCULAR: Regular rate and rhythm. No murmurs, rubs, or gallops LUNGS: Clear to auscultation bilaterally. No wheezes. No rhonchi ABDOMEN: Soft, nontender, nondistended. Positive bowel sounds. Normal active bowel sounds, +PEG NEUROLOGICAL: Alert and oriented x3 -Cranial nerves II through XII grossly intact. Sensation intact to light touch and pinprick in bilat LE and sacral region, +sensation intact to deep anal pressure, no voluntary anal contraction, however intact sphincter tone (1+ patella reflex bilat, negative Babinski bilat) EXTREMITIES: 5\\5 strength bilateral upper extremities. right hip flexor/knee extensor and hip abduction 4/5 (2/5 ankle DF/EHL limited due to surgery, able to wiggle toes) left hip flexor/knee extensor and hip abduction 3/5 (1/5 ankle DF/EHL limited due to surgery, able to wiggle toes) SKIN: bilat ankle incisions c/d/i, thoracic incision c/d/i, blanchable erythema bilat heels, no sacral erythema ASSESSMENT:19-year-old M with no significant PMH who presents status post fall from tree with TBI, SCI, and bilat ankle fractures PLAN: 1. Rehab- PT/OT advance mobility- strengthen/stretch/maintain ROM all 4limbs while keeping spinal precautions and NWB bilat LE- multipodus boots to be worn in bed and while in therapy -discussed with Dr. Christian Wise his ortho doc at [facility] his f/u ankle images- ok for AROM of both ankles- sutures and jeff to be removed today per ortho recs WAREHOUSE DIRECTOR-MBS ordered 10-08-19, patient advanced to [facility] and [facility] -cog for TBI 2. 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 Cardiac: no known hx-monitor for autonomic dysreflexia-optimize pain control, monitor for urinary/fecal retention -c/u propranolol for agitation/storming, will decrease propranolol dosing to 10mg TID as patient clinically improving 4. Resp: patient started on IV Levaquin and Zosyn for sepsis in setting of VAP multifocal pneumonia dx via CTA chest on 10-05-19, sputum growing Klebisella Oxytoca and f/u sputum psotiive for strep group F sensitive to Levaquin, discussed with medicine, ok to d/c IV and c/u on oral Levaquin- medicine recs greatly appreciated-leukocytosis resolved -c/u duonebs, guaifenesin, and budesonide to help reduce upper airway inflammation as patient with constant throat clearing-resolved 5. GI: c/u bowel meds for neurogenic bowel with daily suppository and digital stimulation to trigger recto-colonic reflex 6. : patient has not voided in over 24 hours will replace Kamara as patient disinclined to try self-cathing at this time 7. DVT ppx: lovenox, Doppler negative for DVT- will d/c home on Xarelto for 12 weeks total 8. Ortho: s/p bilat ankle ORIF, NWB f/u ortho 6-8 weeks -post-op Xrays show "Right ankle demonstrates satisfactory open reduction and fixation for bimalleolar fractures with surrounding postoperative changes noted. Left ankle demonstrates satisfactory open reduction and fixation for bimalleolar fractures with surrounding postoperative changes noted." -[facility] ortho expressed concerned for possible failed surgery on personal viewing of images, however discussed case with Dr. Christian Wise who was able to compare p atient's post-op images prior to discharge with 10-08-19 X-rays and does not think there is any change and that ankles are healing well, -f/u CT scan ordered by inhouse ortho reading showing satisfactory post-op surgical alignment, discussed case with Dr. Lancaster foot-ankle specialist who reviewed all images and does NOT believe this is a failed surgery, will have patient f/u with Dr. Wise for further management 9. Pain: c/u standing oxycodone lowered to 5mg (changed to prn) , patient reporting his pain is well controlled -c/u gabapentin, tylenol TID 10. Dispo: 10-16-19 to home, progressing towards goals DME: patient will require a wheelchair as he is paraplegic and cannot bear weight through his feet due to ankle fractures. He will need a wheelchair to complete his MRADLs in a timely and safe manner and is unable to use a walker or cane. his home is wheelchair accessible, he agrees to use it and his family can help him. Allergies Coded Allergies: No Known Allergies (Unverified , 10/04/19) Vital Signs Vital Signs Date Time Temp Pulse Resp B/P (MAP) Pulse Ox O2 Delivery O2 Flow Rate FiO2 10/16/19 09:04 91 122/71 10/16/19 06:00 98.1 19 99 Room Air Current Medications Current Medications Current Medications Medications (Trade) Dose Ordered Sig/Talia Route PRN Reason Start Time Stop Time Status Last Admin Dose Admin Acetaminophen (Tylenol Suspension) 975 mg TID TF 10/04/19 21:00 10/14/19 10:45 DC 10/13/19 21:33 Acetaminophen (Tylenol Tab) 975 mg TID PEG 10/14/19 09:00 10/16/19 15:07 DC 10/16/19 09:04 Albuterol Sulfate (Proventil, Ventolin Hfa) 2 puff Q4H PRN INH WHEEZING 10/05/19 13:15 10/16/19 15:07 DC Albuterol/ Ipratropium (Duoneb (Ipr 0.5mg/Alb 2.5mg)) 3 ml RQID NEB 10/04/19 20:00 10/16/19 15:07 DC 10/16/19 11:04 Albuterol/ Ipratropium (Duoneb (Ipr 0.5mg/Alb 2.5mg)) 3 ml RTID NEB 10/04/19 14:00 10/04/19 18:09 DC Bisacodyl (Dulcolax Suppository) 10 mg ASDIRECTED [place] 10/04/19 19:00 10/05/19 14:11 DC Bisacodyl (Dulcolax Suppository) 10 mg DAILY [place] 10/07/19 14:45 10/10/19 11:42 DC Bisacodyl (Dulcolax Suppository) 10 mg DAILY@1400 [place] 10/10/19 14:00 10/16/19 15:07 DC Bisacodyl (Dulcolax Suppository) 10 mg QPM@1700 [place] 10/05/19 17:00 10/07/19 14:36 DC Budesonide (Pulmicort Flexhaler) 2 puff RBID INH 10/04/19 20:00 10/16/19 15:07 DC 10/16/19 07:09 Chlorhexidine Gluconate (Peridex Oral Rinse) 15 ml QID XX 10/04/19 21:00 10/16/19 15:07 DC 10/15/19 21:01 Docusate Sodium (Colace Liquid) 100 mg BID GT 10/09/19 21:00 10/16/19 15:07 DC 10/15/19 21:01 Docusate Sodium (Colace Liquid) 100 mg TID GT 10/04/19 21:00 10/07/19 14:36 DC 10/07/19 07:44 Docusate Sodium (Colace Liquid) 200 mg TID GT 10/07/19 16:00 10/09/19 12:07 DC 10/08/19 15:44 Enoxaparin Sodium (Lovenox) 40 mg DAILY SC 10/05/19 09:00 10/16/19 15:07 DC 10/16/19 09:05 Fluticasone Propionate (Flonase 0.05% Nasal [place]) 1 spray BID NARES 10/04/19 21:00 10/16/19 15:07 DC 10/16/19 09:05 Gabapentin (Neurontin) 200 mg TID PEG 10/04/19 21:00 10/04/19 18:47 DC Gabapentin (Neurontin) 200 mg TID PEG 10/15/19 16:00 10/16/19 15:07 DC 10/16/19 09:03 Gabapentin (Neurontin) 300 mg TID PEG 10/04/19 21:00 10/15/19 14:25 DC 10/15/19 09:40 Guaifenesin (Robitussin Tab) 400 mg TID PEG 10/05/19 09:00 10/16/19 15:07 DC 10/16/19 09:04 Guaifenesin (Robitussin) 10 ml TID PEG 10/04/19 21:00 10/05/19 02:48 DC 10/04/19 21:16 Home Med (Med Rec Complete!) ASDIRECTED XX 10/04/19 18:15 10/04/19 18:08 DC Lansoprazole (First-Lansoprazole Oral Suspension) 30 mg DAILY PEG 10/05/19 09:00 10/16/19 15:07 DC 10/16/19 09:05 Levofloxacin (Levaquin) 750 mg DAILY@06 GT 10/10/19 06:00 10/16/19 15:07 DC 10/16/19 06:02 Levofloxacin 750 mg/IV Miscellaneous Supplies 150 ml @ 100 mls/hr Q24H IV 10/05/19 16:00 10/10/19 12:38 DC 10/09/19 16:29 Oxycodone HCl (Roxicodone, Oxyir) 5 mg Q4H PEG 10/09/19 17:00 10/15/19 14:25 DC 10/15/19 14:14 Oxycodone HCl (Roxicodone, Oxyir) 5 mg Q4H PRN PEG pain 10/15/19 14:30 10/16/19 15:07 DC Oxycodone HCl (Roxicodone, Oxyir) 5 mg Q8HP PRN PEG PAIN 10/04/19 17:00 10/04/19 18:14 DC Oxycodone HCl (Roxicodone, Oxyir) 5 mg QID PEG 10/04/19 21:00 10/05/19 14:16 DC 10/05/19 12:42 Oxycodone HCl (Roxicodone, Oxyir) 7.5 mg Q4H PEG 10/07/19 17:00 10/09/19 13:37 DC 10/09/19 12:21 Oxycodone HCl (Roxicodone, Oxyir) 7.5 mg Q8HP PRN PEG PAIN 10/04/19 18:15 10/05/19 14:15 DC Oxycodone HCl (Roxicodone, Oxyir) 10 mg Q4H PEG 10/05/19 17:00 10/07/19 16:40 DC 10/07/19 12:20 Piperacillin Sod/ Tazobactam Sod 4.5 gm/Dextrose 50 ml @ 50 mls/hr Q6H IV 10/07/19 17:00 10/10/19 12:38 DC 10/10/19 11:57 Piperacillin Sod/ Tazobactam Sod 4.5 gm/Dextrose 100 ml @ 100 mls/hr Q6H IV 10/05/19 14:00 10/07/19 14:03 DC 10/07/19 07:39 Propranolol HCl (Inderal) 10 mg Q6H PEG 10/04/19 18:00 10/05/19 14:52 DC 10/05/19 12:41 Propranolol HCl (Inderal) 10 mg TID PEG 10/09/19 16:00 10/16/19 15:07 DC 10/16/19 09:04 Propranolol HCl (Inderal) 20 mg TID PEG 10/05/19 16:00 10/09/19 08:17 DC 10/09/19 07:34 Propranolol HCl (Inderal) 20 mg TID PEG 10/09/19 16:00 10/09/19 09:50 DC Quetiapine Fumarate (SEROquel) 12.5 mg BID PEG 10/04/19 21:00 10/10/19 12:38 DC 10/10/19 09:52 Quetiapine Fumarate (SEROquel) 12.5 mg Q8HP PRN PEG agitation 10/04/19 17:00 10/16/19 15:07 DC 10/05/19 04:12 Senna (Senokot) 1 tab DAILY@1200 PEG 10/05/19 12:00 10/07/19 14:36 DC 10/07/19 12:20 Senna (Senokot) 2 tab QHS PEG 10/07/19 21:00 10/16/19 15:07 DC 10/07/19 20:35 Sodium Chloride 1,000 ml @ 120 mls/hr Q8H20M IV 10/05/19 15:00 10/07/19 14:03 DC 10/07/19 11:13 Sodium Chloride ([place] Nasal [place]) 2 spray TID NA 10/04/19 21:00 10/16/19 15:07 DC 10/16/19 09:05 ARTUR MERRITT MD Oct 21, 2019 13:50
--- NOTE | 2019-10-26 11:59 | PMRDS ---
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 HISTORY OF PRESENT ILLNESS: 19M no pmh presented to [facility] on 09-24-19 after sustaining a fall from a tree while working found to have bilateral ankle fractures, non-displaced nasal bone fracture/oblique left upper posterior molar fracture, and a left sided temporal lobe contusion with scattered subarachnoid hemorrhages. He also was found to have a T12 burst fracture with noted bilateral lower extremity paralysis. MRI of his spine confirmed spinal cord compression. He was intubated, admitted to the ICU, started on seizure prophylaxis with Keppra, and evaluated by neurosurgery who performed a laminectomy and fusion performed 09/25/19. He underwent bilateral ankle ORIF on 09-27-19, was started on DVT prophylaxis and made NWB for 6-8 weeks. Plastic and ENT did not deem his facial fractures to operable. He was unable to pass a swallow eval and underwent PEG placement on 09-30-19, however was cleared for dysphagia diet prior to discharge. He was deemed to be medically appropriate for discharge to [facility]U. On initial presentation patient was delirious reporting visual hallucinations with ongoing productive cough. He reports having pain everywhere. He is able to follow some commands. PAST MEDICAL HISTORY: As per history of present illness (HPI). HOSPITAL COURSE: The patient was admitted and enrolled in a comprehensive physical therapy (PT), occupational therapy (OT), speech/language pathology program. He received 24-hour nursing supervision, and weekly team meetings were held to discuss his progress. The patient was initially nothing by mouth, however, after being seen by speech/language pathology was upgraded to honey and puree, which he received in addition to bolus feeds via his percutaneous endoscopic gastrostomy (PEG). The patient was diagnosed with a ventilator-associated pneumonia and was started on intravenous (IV) Zosyn and Levaquin and eventually downgraded to oral Levaquin following an adequate dosing of IV Zosyn. The patient's initial presentation with cough and copious sputum gradually improved, and his white count diminished. The patient presented with episodes of delirium and was treated with Seroquel. He was also treated with propranolol for agitation and storming in the setting of recent traumatic brain injury (TBI). He was seen by orthopedics during his hospital stay, who initially were concerned that his bilateral open reduction, internal fixation (ORIF) may not have been healing properly; however, upon further investigation, his postoperative changes were deemed to be adequate, and there was no concern for failed surgery. This was also discussed with the primary surgeon, Dr. Wise, down in [place]. The patient was able to have daily bowel movements on his bowel regimen; however, trial of void was not successful, and the patient was discharged home with a Kamara and instructed to followup with urology. He did decline learning how to self-catheterize during his hospital course. He underwent and an PENELOPE spinal cord injury exam and was deemed to be an L1 PENELOPE D incomplete injury. He was educated on the fact that he would, in fact, walk again; however, he would likely need bilateral ankle-foot orthoses (AFOs) once he is able to bear weight through his ankles. He was educated and provided handouts on the importance of a daily bowel regimen, pressure relief techniques to prevent skin breakdown, signs and symptoms of autonomic dysreflexia, and his mother was also called 2 days following his discharge to discuss these concerns. The patient was ultimately deemed medically and functionally stable to return home. DISCHARGE MEDICATIONS: As per instructions. FUNCTIONAL HISTORY ON DISCHARGE: The patient was modified independent from a wheelchair level and minimal assist for functional transfers using a slide board transfer. Thank for this referral
== END 2019-10-16 14:25 | disposition home health service (06) | DRG 862 ==
LOC: M PM&R 15:43
PROVIDERS: ADMIT Physical Medicine & Rehabilitation; ATTEND Physical Medicine & Rehabilitation
DX: S06.6X9D Traumatic subarachnoid hemorrhage with loss of consciousness of unspecified duration, subsequent encounter (principal); J15.0 Pneumonia due to Klebsiella pneumoniae; G93.40 Encephalopathy, unspecified; R13.10 Dysphagia, unspecified; G82.22 Paraplegia, incomplete; N31.9 Neuromuscular dysfunction of bladder, unspecified; G90.1 Familial dysautonomia [Riley-Day]; S02.2XXD Fracture of nasal bones, subsequent encounter for fracture with routine healing; S82.842D Displaced bimalleolar fracture of left lower leg, subsequent encounter for closed fracture with routine healing; S00.83XD Contusion of other part of head, subsequent encounter; R33.9 Retention of urine, unspecified; R41.0 Disorientation, unspecified; R44.3 Hallucinations, unspecified; S82.841D Displaced bimalleolar fracture of right lower leg, subsequent encounter for closed fracture with routine healing; S22.081D Stable burst fracture of T11-T12 vertebra, subsequent encounter for fracture with routine healing; W14.XXXD Fall from tree, subsequent encounter; Y92.9 Unspecified place or not applicable; Z93.1 Gastrostomy status; Z93.0 Tracheostomy status; Z98.1 Arthrodesis status; Z87.891 Personal history of nicotine dependence; Z11.59 Encounter for screening for other viral diseases

== ENCOUNTER → 2023-03-22 | Outpatient (REF) ==
[~2023-03-22] MED LIST: ACET1TAB55 PEG; BISA10SU PR; COLA100C5 PO; FLUT50SP17 NARES; GABA-1171 PEG; OXYC-517 PEG; PROP10TA56 PEG; SENN-111 PEG; VENTAER INH; XARE10TA PO
== END ==
LOC: M PLAIMG 14:09
PROVIDERS: ATTEND Internal Medicine
DX: R52 Pain, unspecified (principal)